=== PATIENT | male | born 1945 | race Caucasian/White ===

== ENCOUNTER → 2017-07-08 | Outpatient (CLI) | payer MEDICARE ==
[~2017-07-08] MED LIST: AMIL5 PO; AMLO5 PO; AZAT50 PO; Altoprev20 MG PO; Aspirin EC81 MG PO; CARV25 PO; CHOICEFUL VITA1 EACH PO; CINA30 PO; FAMO20 PO; FERR325 PO; Humalog100 UNIT/1; INSUASPI; Meribin5 MG PO; POTCHL20ER PO; POTPHO PO; Prednisone5 MG PO; TACR1 PO; VITAMIN D32000 UNIT PO
== END | disposition home or self-care (01) ==
LOC: OLS 12:30
PROVIDERS: Internal Medicine
DX: N18.3 Chronic kidney disease, stage 3 (moderate) (principal)
CPT/HCPCS: 82570; 84156

== ENCOUNTER → 2017-12-24 | Outpatient (CLI) | payer MEDICARE | LOC: LAB SHORT 07:40 | DX: E11.9 Type 2 diabetes mellitus without complications (principal); N25.81 Secondary hyperparathyroidism of renal origin | CPT/HCPCS: 36415; 83036; 83970 ==

== ENCOUNTER → 2018-07-22 | Outpatient (CLI) | payer MEDICARE, OTHER | END | disposition home or self-care (01) | LOC: LAB 07:00 → LAB SHORT 07:00 | PROVIDERS: Internal Medicine | DX: N18.3 Chronic kidney disease, stage 3 (moderate) (principal) | CPT/HCPCS: 81050; 84156 ==

== ENCOUNTER 2018-10-08 09:23 | Day surgery (SDC) | payer MEDICARE, OTHER ==
[~2018-10-08] VITALS: Ht 175.3 cm; Wt 90.9 kg
[~2018-10-08 09:23] MED LIST changes: +DOXA2; +FURO20; +LOSA25; +MAGOXI400; +Phospha 250 Ne250 MG; +SITA100T2; +SUCR1
--- NOTE | 2018-10-08 10:49 | NUR ---
10/08/18 1049 Dilia Pena LATE ENTRY FOR TODAY DURING DISCHARGE PATIENT REFUSED MULTIPLE OFFERS OF PO FLUIDS.
== END 2018-10-08 10:45 | disposition home or self-care (01) ==
LOC: ORSCSDS 09:23
PROVIDERS: Internal Medicine Gastroenterology
PROC: 0DB68ZX Excision of Stomach, Via Natural or Artificial Opening Endoscopic, Diagnostic (ICD-10-PCS; principal; 2018-10-08 10:45)
PROC: 0DB58ZX Excision of Esophagus, Via Natural or Artificial Opening Endoscopic, Diagnostic (ICD-10-PCS; principal; 2018-10-08 10:45)
DX: K22.70 Barrett's esophagus without dysplasia (principal); K29.80 Duodenitis without bleeding; K44.9 Diaphragmatic hernia without obstruction or gangrene; K31.9 Disease of stomach and duodenum, unspecified; R11.2 Nausea with vomiting, unspecified; K21.9 Gastro-esophageal reflux disease without esophagitis; E78.5 Hyperlipidemia, unspecified; I10 Essential (primary) hypertension; E11.9 Type 2 diabetes mellitus without complications; D64.9 Anemia, unspecified; Z79.82 Long term (current) use of aspirin; Z79.4 Long term (current) use of insulin; Z79.899 Other long term (current) drug therapy
CPT/HCPCS: 82947; 88305; 88342; J2704; J7120

== ENCOUNTER → 2019-09-01 | Outpatient (CLI) | payer MEDICARE ==
[2019-09-01 10:44] LABS: Protein, Urine Quantitative 62.1 mg/dL (0.0-11.9)
== END | disposition home or self-care (01) ==
LOC: LAB SHORT 08:16 → LAB 08:16 → LAB FUT 08-05 05:00 → EDSTATUS 08-05 05:00
PROVIDERS: Internal Medicine
DX: N18.3 Chronic kidney disease, stage 3 (moderate) (principal)
CPT/HCPCS: 81050; 84156

== ENCOUNTER → 2020-06-15 | Outpatient (CLI) | payer MEDICARE, OTHER ==
[~2020-06-15] MED LIST changes: +AMLO10 PO; -AMLO5 PO; +ATHLETE'S FOO35.4 GM TOP; -Altoprev20 MG PO; -CARV25 PO; +CARVEDILOL12.5 MG PO; +CLOTRIMAZOLE AF1524 TOP; +Carvedilol25 MG PO; -FURO20; +FURO20 PO; -LOSA25; +LOSA50 PO; +LOVA40 PO; +MAGNESIUM OXID500 MG PO; +PHOSPHO-TRIN 2250 MG PO; +PRED5 PO; +Pepcid20 MG PO; -Phospha 250 Ne250 MG; +XARELTO15 MG PO
== END | disposition home or self-care (01) ==
LOC: LAB SHORT 16:32
DX: Z48.817 Encounter for surgical aftercare following surgery on the skin and subcutaneous tissue (principal); L08.9 Local infection of the skin and subcutaneous tissue, unspecified; L81.4 Other melanin hyperpigmentation
CPT/HCPCS: 87070; 87077; 87147; 87186; 87205

== ENCOUNTER 2021-05-14 11:20 | Day surgery (SDC) | payer MEDICARE, OTHER ==
[~2021-05-14] VITALS: Ht 175.3 cm; Wt 88.1 kg
--- NOTE | 2021-05-14 12:48 | NUR ---
Ambulatory in Day Surgery Patient states colon prep results clear. History, Chart, Medications and Allergies reviewed before start of procedure. Pre-Op teaching done. Pt verbalizes understanding. Patient States Post-Procedure ride home has been arranged.
--- NOTE | 2021-05-14 13:06 | NUR ---
05/14/21 1306 Naga Gregory History, Chart, Medications and Allergies reviewed before start of procedure. Patient confirms NPO status and agrees with scheduled surgery. 3-LEAD EKG REVIEWED WITH PHYSICIAN PRIOR TO START OF PROCEDURE. MONITOR INTACT WITH CONTINUOUS PULSE OXIMETRY AND INTERMITTENT BP. PATIENT DETERMINED TO BE ASA APPROPRIATE FOR PROPOFOL SEDATION PRIOR TO START OF PROCEDURE BY DR. AVERY.
--- NOTE | 2021-05-14 14:05 | NUR ---
Patient up to Ambulate independently. Gait steady. Discharge instructions reviewed with patient. Patient verbalizes understanding. Copy given to patient to take home. Patient States Post-Procedure ride home has been arranged. Discharged via wheelchair to private car for ride home.
== END 2021-05-14 14:08 | disposition home or self-care (01) ==
LOC: ORSCMMR 11:20 → ORD 13:00 → ORSCMMR 13:00
PROVIDERS: Surgery
PROC: 0DBL8ZX Excision of Transverse Colon, Via Natural or Artificial Opening Endoscopic, Diagnostic (ICD-10-PCS; principal; 2021-05-14 13:00)
PROC: 0DBK8ZX Excision of Ascending Colon, Via Natural or Artificial Opening Endoscopic, Diagnostic (ICD-10-PCS; principal; 2021-05-14 13:00)
DX: Z12.11 Encounter for screening for malignant neoplasm of colon (principal); D12.2 Benign neoplasm of ascending colon; D12.3 Benign neoplasm of transverse colon; K64.8 Other hemorrhoids; Z86.010 Personal history of colon polyps; I25.10 Atherosclerotic heart disease of native coronary artery without angina pectoris; I48.0 Paroxysmal atrial fibrillation; I10 Essential (primary) hypertension; E21.2 Other hyperparathyroidism; N18.6 End stage renal disease; Z94.0 Kidney transplant status; E78.5 Hyperlipidemia, unspecified; Z79.82 Long term (current) use of aspirin; Z79.899 Other long term (current) drug therapy; Z79.4 Long term (current) use of insulin
CPT/HCPCS: 82947; 88305; J2704; J7030

== ENCOUNTER 2021-08-16 16:52 | Emergency (ER) | payer MEDICARE, OTHER ==
[~2021-08-16] VITALS: Ht 177.8 cm; Wt 83.9 kg
[2021-08-16 17:47] LABS: BASOPHILS ABSOLUTE AUTO 0.01 K/mm3 (0.00-0.23); BASOPHILS PERCENT AUTO 0 % (0-2); EOSINOPHILS ABSOLUTE AUTO 0.04 K/mm3 (0.00-0.68); EOSINOPHILS PERCENT AUTO 1 % (0-6); Hematocrit 30.6 % (37.0-53.0); IMMATURE GRAN ABSOLUTE AUTO 0.02 K/mm3 (0.00-0.10); IMMATURE GRAN PERCENT AUTO 0 % (0-1); LYMPHOCYTES ABSOLUTE AUTO 0.39 K/mm3 (0.84-5.20); LYMPHOCYTES PERCENT AUTO 8 % (21-46); MONOCYTES ABSOLUTE AUTO 0.55 K/mm3 (0.16-1.47); MONOCYTES PERCENT AUTO 11 % (4-13); Mean Corpuscular HGB 33.7 pg (26.0-34.0); Mean Corpuscular HGB Conc 32.7 g/dL (31.5-36.5); Mean Corpuscular Volume 103 fL (80-100); NEUTROPHILS ABSOLUTE AUTO 3.86 K/mm3 (1.96-9.15); NEUTROPHILS PERCENT AUTO 79 % (41-73); Platelet Count 140 K/mm3 (150-400); RDW Coefficient Variation 15.7 % (11.7-14.2); RDW Standard Deviation 57.9 fL (35.1-46.3); Red Blood Cell Count 2.97 M/mm3 (4.30-5.90); White Blood Cell Count 4.87 K/mm3 (4.00-11.30)
[2021-08-16 18:05] LABS: Albumin, Blood 3.1 g/dL (3.4-5.0); Bilirubin, Total 0.4 mg/dL (0.1-1.0); Bun/Creatinine Ratio 16.6 (12.0-20.0); Calcium, Blood 9.6 mg/dL (8.5-10.1); Creatinine, Blood 1.87 mg/dL (0.60-1.20); Globulin, Blood 3.1 g/dL (2.2-4.0); Potassium, Blood 5.9 mmol/L (3.5-5.5); Total Protein, Blood 6.2 g/dL (6.4-8.2)
[2021-08-16 22:05] LABS: Calcium, Ionized (POC) 1.33 mmol/L (1.10-1.46); Chloride (POC) 104 mmol/L (98-108); Glucose (ISTAT POC) 116 mg/dL (70-99); Hemoglobin (POC) 9.5 g/dL (13.5-17.5); Potassium (POC) 5.4 mmol/L (3.5-5.5); Sodium (POC) 137 mmol/L (135-148); Total CO2 (POC) 23 mmol/L (21-32)
== END 2021-08-16 22:52 | disposition home or self-care (01) ==
LOC: ER 16:52
PROVIDERS: Emergency Medicine; Physician Assistant
DX: R06.02 Shortness of breath (principal); E87.5 Hyperkalemia; N18.6 End stage renal disease; I12.0 Hypertensive chronic kidney disease with stage 5 chronic kidney disease or end stage renal disease; E11.22 Type 2 diabetes mellitus with diabetic chronic kidney disease; Z88.8 Allergy status to other drugs, medicaments and biological substances; Z88.5 Allergy status to narcotic agent; Z79.899 Other long term (current) drug therapy; Z79.52 Long term (current) use of systemic steroids; K21.9 Gastro-esophageal reflux disease without esophagitis; Z87.891 Personal history of nicotine dependence
CPT/HCPCS: 36415; 71046; 80047; 80053; 83880; 84484; 85014; 85025; 93005; 93010; 96374; 99285-25; J1815

== ENCOUNTER 2021-08-26 12:08 | Inpatient (IN) | payer MEDICARE, OTHER ==
[~2021-08-26] VITALS: Ht 177.8 cm; Wt 80.7 kg
[2021-08-26 12:34] LABS: BASOPHILS ABSOLUTE AUTO 0.02 K/mm3 (0.00-0.23); BASOPHILS PERCENT AUTO 0 % (0-2); EOSINOPHILS ABSOLUTE AUTO 0.03 K/mm3 (0.00-0.68); EOSINOPHILS PERCENT AUTO 0 % (0-6); Hematocrit 34.7 % (37.0-53.0); IMMATURE GRAN ABSOLUTE AUTO 0.05 K/mm3 (0.00-0.10); IMMATURE GRAN PERCENT AUTO 1 % (0-1); LYMPHOCYTES ABSOLUTE AUTO 0.31 K/mm3 (0.84-5.20); LYMPHOCYTES PERCENT AUTO 4 % (21-46); MONOCYTES ABSOLUTE AUTO 0.73 K/mm3 (0.16-1.47); MONOCYTES PERCENT AUTO 9 % (4-13); Mean Corpuscular HGB 33.4 pg (26.0-34.0); Mean Corpuscular HGB Conc 31.7 g/dL (31.5-36.5); Mean Corpuscular Volume 106 fL (80-100); Mean Platelet Volume 9.2 fL (9.1-12.4); NEUTROPHILS ABSOLUTE AUTO 6.82 K/mm3 (1.96-9.15); NEUTROPHILS PERCENT AUTO 86 % (41-73); Platelet Count 142 K/mm3 (150-400); RDW Coefficient Variation 15.7 % (11.7-14.2); RDW Standard Deviation 60.8 fL (35.1-46.3); Red Blood Cell Count 3.29 M/mm3 (4.30-5.90); White Blood Cell Count 7.96 K/mm3 (4.00-11.30)
[2021-08-26 13:02] LABS: Albumin, Blood 3.1 g/dL (3.4-5.0); Albumin/Globulin Ratio 0.8 (0.8-1.8); Bilirubin, Total 0.7 mg/dL (0.1-1.0); Bun/Creatinine Ratio 10.9 (12.0-20.0); Calcium, Blood 10.4 mg/dL (8.5-10.1); Creatinine, Blood 4.66 mg/dL (0.60-1.20); Globulin, Blood 4.1 g/dL (2.2-4.0); Potassium, Blood 9.6 mmol/L (3.5-5.5); Total Protein, Blood 7.2 g/dL (6.4-8.2)
[2021-08-26 13:10] LABS: Calcium, Ionized (POC) 1.36 mmol/L (1.10-1.46); Chloride (POC) 110 mmol/L (98-108); Creatinine (POC) 5.1 mg/dL (0.8-1.3); Glucose (ISTAT POC) 206 mg/dL (70-99); Hemoglobin (POC) 11.2 g/dL (13.5-17.5); Potassium (POC) >9.0 mmol/L (3.5-5.5); Sodium (POC) 131 mmol/L (135-148); Total CO2 (POC) 19 mmol/L (21-32)
[2021-08-26 13:44] LABS: Magnesium, Blood 2.8 mg/dL (1.6-2.4); Phosphorus, Blood 5.4 mg/dL (2.5-4.9)
[2021-08-26 13:54] LABS: International Normalized Ratio 1.31; Prothrombin Time Results 13.5 Sec (9.7-11.5)
--- NOTE | 2021-08-26 15:39 | NUR ---
ASSUMED CARE OF PATIENT 1420 ED ADMIT FROM ELECTRICAL MANUFACTURING TECHNICIAN: AOX4, FOLLOWS COMMANDS, CONSENTS TO DIALYSIS, R FEMORAL TRANSVENOUS PACER PRESENT 10MAH OUTPUT, 60 V PACED RATE AND 2 SENSING, SYRINGE UNLOCKED UPON TRANSFER WITH 1.5ML IN SYRINGE, MD WALTON CONSULTED BALOON DEFLATED AND LOCKED NOW, DIALYSIS INITITED, LEVO ORDER FOR HYPOTENSION DURING DIALYSIS, MAP GOAL 60 PER MD BURDEN, GENERALIZED BRUISING BL UPPER EXTREMETIES, +2 PULSES, V PACED 60, LUNGS SEVERLY DIM, AIRVO PLACED TO MAINTAIN SATS >92, COMPLAINS OF SOB, TACHYPNEA 30S SHALLOW, ABDOMEN NON-TENDER, LBM THIS AM, WILL CONTINUE TO MONITOR PATIENT/LABS/VSS FOR IPROVEMENT IN CONDITION.
--- NOTE | 2021-08-26 18:31 | NUR ---
AOX4, DENIES PAIN, ONE EPISODE N/V, 4MG ZOFRAN GIVEN, PUPILS 3MM BRISK, V PACED CONVERTED TO NSR 60S DURING DIALYSIS, LEVO HIGH 9 DURING DIALYSIS TITRATING OFF CURRENTLY, +2 PULSES, DIM LUNGS ALL [place], AIRVO 40/40, BLANDON COUDE 16F PLACED, MINIMAL OUTPUT CURRENTLY, RENAL US AND ECHO COMPLETED RESULTS PENDING, POSSIBLE ASPIRATION W/ N/V CHEST X RAY DONE, AM X RAY ORDER PLACED, IN ROOM MOST OF SHIFT, LABS ORDER FOR 1899 COHEN REQUEST CALL WHEN RESULTED, WILL CONTINUE TO MONITOR AND REPORT TO NIGHT RN.
--- NOTE | 2021-08-26 19:15 | NUR ---
ASSUMPTION OF CARE PT LYING IN BED IN REVERSE [place] POSITION. HE IS RECEIVING NS 75ML/HR. LEVOPHED IS ON STANDBY. TRANSVENOUS PACER IN PLACE WITH RATE OF 50, OUTPUT 10, AND SENSITIVITY 2. HE IS CURRENTLY SINUS RHYTHM ON THE MONITOR WITH RATE IN 70S. R FEMORAL VEIN INSERTION SITE, TEGADERM CHG IN C/D/I. HE IS ON AIRVO AT 40L WITH FIO2 40% AND SPO2 >95%. ALERT AND ORIENTED. BLANDON PATENT AND DRAINING SMALL AMOUNT OF MACKENZIE URINE. DIALYSIS DONE TODAY. FISTULA ON L ARM, BRUIT PRESENT. SEE SHIFT ASSESSMENT.
[2021-08-26 19:19] LABS: Hematocrit 37.1 % (37.0-53.0)
[2021-08-26 19:50] LABS: Albumin, Blood 3.2 g/dL (3.4-5.0); Anion Gap 7 mmol/L (6-16); Blood Urea Nitrogen 32 mg/dL (8-24); Bun/Creatinine Ratio 9.2 (12.0-20.0); CO2, Blood 24 mmol/L (21-32); Calcium, Blood 11.4 mg/dL (8.5-10.1); Chloride, Blood 101 mmol/L (98-108); Creatinine, Blood 3.49 mg/dL (0.60-1.20); Glomerular Filtration Rate 17 (60-); Glucose, Blood 163 mg/dL (70-99); Phosphorus, Blood 5.4 mg/dL (2.5-4.9); Potassium, Blood 8.3 mmol/L (3.5-5.5); Sodium, Blood 132 mmol/L (136-145)
[2021-08-26 20:20] LABS: PCO2 Arterial 38.6 mmHg (35-45); PO2 Arterial 77.8 mmHg (80-100); pH Blood Arterial 7.43 (7.35-7.45)
--- NOTE | 2021-08-26 20:27 | NUR ---
UPDATE LAB RESULTS CALLED TO DR COHEN. ORDER RECEIVED FOR ABG AND REPEAT VENOUS POTASSIUM DRAW. WILL CALL WITH RESULTS. PT C/O PAIN AND DISCOMFORT. DR DIAMOND CALLED AND ORDER RECEIVED FOR TRAMADOL.
--- NOTE | 2021-08-26 20:30 | NUR ---
POTASSIUM UPDATE DR COHEN CALLED WITH REPEAT LAB RESULTS. ORDERS RECEIVED FOR BICARB, D50, INSULIN, AND LOKELMA. PLAN TO REPEAT POTASSIUM DRAW AT 2300.
[2021-08-27 02:58] LABS: Hematocrit 32.8 % (37.0-53.0); Hemoglobin 10.5 g/dL (13.5-17.5)
[2021-08-27 03:16] LABS: Magnesium, Blood 2.5 mg/dL (1.6-2.4)
[2021-08-27 03:19] LABS: Albumin, Blood 2.8 g/dL (3.4-5.0); Anion Gap 6 mmol/L (6-16); Blood Urea Nitrogen 43 mg/dL (8-24); Bun/Creatinine Ratio 10.6 (12.0-20.0); CO2, Blood 28 mmol/L (21-32); Calcium, Blood 9.9 mg/dL (8.5-10.1); Chloride, Blood 102 mmol/L (98-108); Creatinine, Blood 4.04 mg/dL (0.60-1.20); Glomerular Filtration Rate 14 (60-); Glucose, Blood 103 mg/dL (70-99); Phosphorus, Blood 4.8 mg/dL (2.5-4.9); Sodium, Blood 136 mmol/L (136-145)
--- NOTE | 2021-08-27 05:45 | NUR ---
SHIFT SUMMARY PT REMAINS ALERT AND ORIENTED. HE IS RECEIVING NS 50ML/HR. LEVOPHED HAS BEEN ON OFF SINCE PREVIOUS SHIFT. TRANSVENOUS PACER SETTINGS ARE UNCHANGED, RATE OF 50, OUTPUT 10, AND SENSITIVITY 2. INSERTION SITE WNL, DRESSING C/D/I. HE HAS REMAINED IN SINUS RHYTHM WITH A RATE OF 70S-80S THROUGHOUT SHIFT. BP STABLE. HE IS ON AIRVO AT 20L WITH FIO2 30% AND SPO2 >92%. BLANDON IS PATENT DRAINING TO GRAVITY ALTHOUGH PT IS EXPERIENCING OLIGURIA. DR COHEN ROUNDED THIS AM, PLAN FOR DIALYSIS THIS AM.
--- NOTE | 2021-08-27 06:50 | NUR ---
UPDATE DR WALTON AT BEDSIDE FOR EVAL. AT THIS TIME HE SHUT TEMPORARY PACEMAKER OFF. HE INSTRUCTED IF NEEDED TO TURN DEVICE BACK ON AND IT CAN BE LEFT AT THE DEFAULT RATES. DR WALTON WILL RETURN IN 2 HRS TO CHECK PT AND POSSIBLY PLAN TO REMOVE PACEMAKER TODAY. VSS AT THIS TIME.
--- NOTE | 2021-08-27 08:45 | NUR ---
ASSUMED CARE OF PATIENT 0700: AOX4, FOLLOWS COMMANDS, DENIES P/N/V, VSS ON AIRVO 04/27, DIALYSIS THIS AM SCHEDULED, TOLERATED PO AND DIET, PASSED SAFETY SWALLOWMD WALTON REMOVED PACER WIRE AND SHEATH REMOVED BY THIS RN AT 0840, HELD PRESSURE FOR 5 MINUTES NO BLEEDING, TAGEDERM/TAPE PLACED CDI, WILL CONTINUE TO MONITOR PATIENT THROUGH SHIFT.
[2021-08-27 14:24] LABS: Hematocrit 31.6 % (37.0-53.0); Hemoglobin 10.2 g/dL (13.5-17.5)
[2021-08-27 14:47] LABS: Albumin, Blood 2.5 g/dL (3.4-5.0); Anion Gap 8 mmol/L (6-16); Blood Urea Nitrogen 15 mg/dL (8-24); Bun/Creatinine Ratio 6.4 (12.0-20.0); CO2, Blood 29 mmol/L (21-32); Calcium, Blood 9.4 mg/dL (8.5-10.1); Chloride, Blood 105 mmol/L (98-108); Creatinine, Blood 2.35 mg/dL (0.60-1.20); Glomerular Filtration Rate 27 (60-); Glucose, Blood 137 mg/dL (70-99); Sodium, Blood 142 mmol/L (136-145)
[2021-08-27 15:07] LABS: Potassium, Blood 4.9 mmol/L (3.5-5.5)
--- NOTE | 2021-08-27 18:15 | NUR ---
DISCREPANCY BETWEEN SCREEN MAKER MED LIST AND PATIENT MED LIST TACROLIMUS DOSAGE. CONFIRMED WITH [facility] THAT PATIENT RECEIVES 0.5MG BID, MD COHEN NOTIFIED AND INSTRUCTED THIS RN TO PLACE THIS ORDER SO PATIENT RECEIVES FIRST DOSE TONIGHT. ORDER IS PLACED.
--- NOTE | 2021-08-27 18:18 | NUR ---
AOX4, DENIES P/N/V, CALLS WHEN NEEDED, IN ROOM MOST OF DAY, NSR 80-90S, BP WNL TO SOFT, CARVEDILOL RESTARTED, +2/+1 PULSES RESPECTIVELY, DIALYSIS TODAY 500ML OFF, RECHECK POTASSIUM POST DIALYSIS 4.9 NO NEED TO REASSES PER MD COHEN, LUNGS DIM MORE SO ON RLL BASE MD AWARE, AIRVO CONTINUES TITRATED UP SOME TO 30L/30%, DENIES SOB THIS SHIFT, BOWELS NON TENDER BUT AUDIBLE, BLANDON MINIMAL OUTPUT MD CRUZ/VICKI AWARE, TOLERATING DIET BUT MINIMAL APPETITE BASELINE PER PATIENT AND , TACROLIMUS ORDER RESTARTED SEE NOTE, WILL CONTINUE TO MONITOR AND REPORT TO NIGHT RN.
[2021-08-27 21:07] LABS: HBSAG SCREEN Negative (Negative); HEP A AB, IGM Negative (Negative); HEP B CORE AB, IGM Negative (Negative); HEP C VIRUS AB <0.1 (0.0-0.9)
--- NOTE | 2021-08-27 21:17 | NUR ---
ASSUMED CARE AT 1900 PATIENT IS ALERT AND ORIENTED X4. COOPERATIVE WITH CARE. MOVES ALL EXTREMETIES. 02 SATS 94% ON AIRVO 30L FI02 30%, TITRATING DOWN. LS CLEAR TO DIMINISHED. HR SR @80s. BP STABLE. BLANDON DRAINING TO GRAVITY. RIGHT FEMORAL SITE S/P REMOVAL OF TRANSVENOUS PACEMAKER WNL, DRESSING C/D/I. VERBAL CUES TO REPOSITION AND ASSISTANCE WITH BOOSTING IN BED. SEE SHIFT ASSESSMENT FOR MORE DETAIL.
--- NOTE | 2021-08-28 06:21 | NUR ---
SHIFT SUMMARY PATIENT IS ALERT AND ORIENTED X4. FOLLOWS COMMANDS, COOPERATIVE WITH CARE. 02 SATS 94% ON AIRVO AT 30L FI02 30%. LS CLEAR TO DIM. HR SR @80s, BP STABLE. BLANDON DRAINING TO GRAVITY. PATIENT SLEPT MOST THE NIGHT. VERBAL QUES TO REPOSITION. CALL LIGHT IN REACH.
[2021-08-28 06:33] LABS: Hematocrit 27.6 % (37.0-53.0); Hemoglobin 8.8 g/dL (13.5-17.5)
[2021-08-28 06:50] LABS: Albumin, Blood 2.3 g/dL (3.4-5.0); Anion Gap 5 mmol/L (6-16); Blood Urea Nitrogen 22 mg/dL (8-24); Bun/Creatinine Ratio 6.2 (12.0-20.0); CO2, Blood 28 mmol/L (21-32); Calcium, Blood 9.4 mg/dL (8.5-10.1); Chloride, Blood 105 mmol/L (98-108); Creatinine, Blood 3.55 mg/dL (0.60-1.20); Glomerular Filtration Rate 17 (60-); Glucose, Blood 94 mg/dL (70-99); Magnesium, Blood 2.2 mg/dL (1.6-2.4); Potassium, Blood 4.9 mmol/L (3.5-5.5); Sodium, Blood 138 mmol/L (136-145)
--- NOTE | 2021-08-28 11:37 | NUR ---
REASSESSMENT PT ALERT AND RESTING ON BED, VISITING WITH FAMILY. PT WAS DOWNGRADED TO PCU STATUS THIS MORNING. PT REMAINS ON HIGHFLOW NC. RT ADJUSTED FLOW RATE THIS MORNING PT NOW ON 40L/30%FIO2, SPO2 MAINTING AROUND 96%. NEXT DIALYSIS PLANNED FOR TOMORROW. OTHER PORTIONS OF PREVIOUS ASSESSMENT REMAINS UNCHANGED. SINUS RHYTHM ON THE MONITOR. VITALS STABLE.
--- NOTE | 2021-08-28 12:47 | NUR ---
Initial Interview with [facility] Person 1. Who did you speak with? Spoke with Cherelle (at bedside) 2. What is the patient's prior level of functions? Patient lives independently with his . He is able to perform ADL's without assistance. Patient has a pretty active lifestyle. He likes to restore old vehicles. They live in a single story dwelling ranch style home with one step at the entrance and back of the home. They have one cat. Patient had a kidney transplant in 2013 and has been active. 3. Is the patient and/or family able to provide transportation to and from doctor's appointments and order picker prescriptions? 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 4. Does patient still drive? Yes 5. POA/PCP/NOK: Spouse Cherelle [phone] PCP REINFORCED CONCRETE INSPECTOR Zina Maier 6. Discharge goals: TBD -Home Health: no preference if needed -[facility] Facility: N/A -DME: TBD/none -Medication Management: managed medications -Preferred Pharmacy: [facility] -Housekeeping/Cooking: patient and take care of housekeeping and cooking as needed 7. List barriers to discharge: None known at this time 8. Discharge Plan: TBD/Home 9. Other Notes: Patient is not a . Explained importance of hospital follow-up with PCP within 7 days of discharge. PCP Follow up appointment: Will be scheduled within seven calendar days of discharge. Numbers confirmed: Patient [phone] Cherelle [phone].
--- NOTE | 2021-08-28 15:50 | NUR ---
CARE HANDOFF GIVEN TO DUSTIN CHU.
--- NOTE | 2021-08-28 16:58 | NUR ---
ASSUMED CARE AT 1600 PATIENT HAS BEEN SITTING IN BED WITH AT BEDSIDE. HE HAS BEEN WATCHING TV. VS STABLE. PATIENT DOES HAVE HIS HEARING AIDES IN PLACE. HE HAS A LOW GRADE TEMP AT 99.1C. BLOOD SUGAR IS 92 NO COVERAGE NEEDED. HIS URINE OUTPUT IS GOOD VIA THE BLANDON. WILL GIVE DINNER SOON. NO NEW ACUTE NEEDS AT THIS TIME.
--- NOTE | 2021-08-28 21:02 | NUR ---
ASSUMED CARE AT 1900 PATIENT IS ALERT AND ORIENTED X4. COOPERATIVE WITH CARE. 02 SATS 94% ON AIRVO 40L FI02 40%. RR 18-24. WEAK COUGH. LS CLEAR TO DIM. HR SR 80s. BP STABLE. BLANDON DRAINING TO GRAVITY. RIGHT UPPER ARM IV LEAKING, REMOVED. PATIENT ABLE TO REPOSITION SELF IN BED, VERBAL REMINDERS. ORAL CARE DONE, PATIENT ABLE TO BRUSH OWN TEETH. SEE SHIFT ASSESSMENT FOR MORE DETAIL.
--- NOTE | 2021-08-28 22:22 | NUR ---
REPORT GIVEN TO GEOLOGY INSTRUCTORDUSTIN DIMAS. PATIENT TO PCU AT APPROX 1330.
--- NOTE | 2021-08-28 23:04 | NUR ---
PATIENT TRANSFERED FROM ICU AT 2210 ACCOMPANIED BY ICU NURSE AND RT. PATEINT MR. ALVES IS 76 YRS OLD MALE, ORIENTATED TIMES 4. COOPERATIVE AND ABLE TO PLACED NEEDS KNOWN. PATIENT IS DEAF WITH HEARING AIDS BOTH ON JUNIOR MECHANICAL ENGINEER AT BEDSIDE. LUNGS SOUNDS RT UPPER LOBES CLEAR AND LL ARE DIMINISHED. PULSE ARE STRONG IN ALL AREAS, PEDIS PULSE ARE FAINTED. PATIENT STATED LAST BM 08/26. SKIN WARM TO TOUCH. CALL LIGHT WITHIN REACH. BED IN SAFE POSITION.
[2021-08-29 04:49] LABS: Hematocrit 26.3 % (37.0-53.0); Hemoglobin 8.5 g/dL (13.5-17.5)
[2021-08-29 05:35] LABS: Albumin, Blood 2.2 g/dL (3.4-5.0); Anion Gap 10 mmol/L (6-16); Blood Urea Nitrogen 28 mg/dL (8-24); CO2, Blood 24 mmol/L (21-32); Calcium, Blood 9.5 mg/dL (8.5-10.1); Chloride, Blood 103 mmol/L (98-108); Creatinine, Blood 3.98 mg/dL (0.60-1.20); Glomerular Filtration Rate 15 (60-); Glucose, Blood 77 mg/dL (70-99); Magnesium, Blood 2.2 mg/dL (1.6-2.4); Phosphorus, Blood 4.3 mg/dL (2.5-4.9); Potassium, Blood 4.4 mmol/L (3.5-5.5); Sodium, Blood 137 mmol/L (136-145)
--- NOTE | 2021-08-29 10:33 | NUR ---
UPDATE PT LEFT FOR DIALYSIS AT 0945. RT PUT PT ON 8L NC AND REPORTED THAT PT SATS ARE HOLDING IN THE 90'S. PT WAS TRANSFERED TO DIALYSIS VIA HOSPITAL BED AND OCCOMPANIED BY 2 AUTOMATIC TOE LASTER AND RT.
--- NOTE | 2021-08-29 12:46 | NUR ---
PT FINISHED DIALYSIS AND RETURNED TO PCU AT 1220.
--- NOTE | 2021-08-29 16:12 | NUR ---
Pt. is awake and sitting up in bed. Pt. welcomes my visit. Pt. is pleasant and we quickly establish rapport. Facilitated a short life review. Pt. displayed evidence of engagement. Prayed with Pt. and committed to see him again (tomorrow) Thursday. Pt. verbalized gratitude for the spiritual care visit.
--- NOTE | 2021-08-29 17:47 | NUR ---
TRANSFER UPDATE/ SHIFT SUMMARY REPORT GIVEN TO ANDREINA CHAN AT 1738. PT LEFT UNIT AT 1746 VIA HOSPITAL BED AND ON 3L NC SATTING >97%. PT BELONGINGS IN BAGS AND WITH PT FOR TRANSFER. PT CHART WITH PT FOR TRANSFER. PT RECIEVING NS FLUIDS PER EMAR DURING TRANSFER. SHIFT SUMMARY PT A/O X4 AND COOPERATIVE OF CARE. VSS THROUGHOUT SHIFT WITH 0S SATS >94%. PT WAS ON AIRVO 30L/30% AT BEGINNING OF SHIFT, TITRATED TO 8L HFNC WHEN TRANSFERED TO DIALYSIS, TITRATED TO 5L HFNC AT 1450, AND TITRATED TO 3L HFNC AT 1700, SATS >97%. PT WENT TO DIALYSIS, 1000ML REMOVED. NO REPORT OF CHEST PAIN/PRESSURE THROUGHOUT SHIFT. NO REPORT OF SOB/DYSPNEA THROUGHOUT SHIFT. JAMIA ARGUELLES'Hair, PT USES URINAL AND BEDPAN. PT EXPRESSED WANTING TO BE ABLE TO "GET UP AND USE THE TOILET", THIS RN EXPLAINED THAT THE PT MAY BE WEAK SINCE HE HAS BEEN BED REST SINCE 08/26 AND PT/OT MAY NEED TO ASSESS HIM, INFO FORWARDED TO SURGICAL NURSE.
--- NOTE | 2021-08-29 17:55 | NUR ---
TO ROOM 212 ACCOMPANIED BY .
--- NOTE | 2021-08-30 02:55 | NUR ---
SHIFT SUMMARY VISHNU CONTINUES TO SAT ABOVE 92% ON 3LPM VIA NASAL CANULA. HE IS IMPULSIVE AT NIGHT, BED ALARM ON FOR SAFETY. VOIDING AT LEAST 300 ML THIS SHIFT, AMBULATING TO BATHROOM WITH SBA AND GAITBELT WITH 1 STAFF MEMBER FOR HELP MANAGING CORDS/TUBING. PT IS IMPULSIVE AND NEEDS REMINDERS TO WAIT FOR STAFF ASSISTANCE. RIGHT ARM IV'S FLUSH WELL. LEFT ARM FISUTLA HAS POSITIVE BRUIT AND THRILL. DENIES CHEST PAIN, HEADACHE OR DIZZINESS. WILL CONTINUE TO MONITOR AND GIVE REPORT TO DAY SHIFT RN.
[2021-08-30 04:19] LABS: Hematocrit 25.9 % (37.0-53.0); Hemoglobin 8.7 g/dL (13.5-17.5)
[2021-08-30 04:42] LABS: Albumin, Blood 2.1 g/dL (3.4-5.0); Anion Gap 6 mmol/L (6-16); Blood Urea Nitrogen 19 mg/dL (8-24); Bun/Creatinine Ratio 6.8 (12.0-20.0); CO2, Blood 29 mmol/L (21-32); Calcium, Blood 9.1 mg/dL (8.5-10.1); Chloride, Blood 104 mmol/L (98-108); Creatinine, Blood 2.81 mg/dL (0.60-1.20); Glomerular Filtration Rate 22 (60-); Glucose, Blood 120 mg/dL (70-99); Magnesium, Blood 2.1 mg/dL (1.6-2.4); Phosphorus, Blood 2.9 mg/dL (2.5-4.9); Potassium, Blood 3.6 mmol/L (3.5-5.5); Sodium, Blood 139 mmol/L (136-145)
--- NOTE | 2021-08-30 11:45 | NUR ---
Pt. is awake and in bed. Pt. welcomes my visit. Re-established rapport. Pt. verbalized a personal commendation for the work I do as a geriatric physician. Spouse arrived and continued facilitating a life review. Pt. displays evidence of emotion over the importance of purpose in life. Prayed with Pt. and Spouse. Both verbalized gratitude for the care the pt. has received, [facility]
--- NOTE | 2021-08-30 12:19 | NUR ---
GAUZE AND TEGADERM DRESSINGS AT R GROIN AND R SHOULDER REMOVED AND SKIN CLEANSED. SITES APPEAR WNL, NO SIGN OF BLEED.
--- NOTE | 2021-08-30 12:42 | NUR ---
REDNESS AND WARMTH NOTED TO R AC AND FOREARM NEAR SALINE LOCKED IV SITE. SLIGHT SWELLING PRESENT, NO EDEMA. RADIAL PULSE +2, NO FIRMNESS NOTED TO SKIN, PT DENIES ANY PAIN. DR. ABARCA MADE AWARE OF THIS AND ASSESSED. IV THEN DC'D, ARM ELEVATED AND WARM BLANKET WRAPPED AROUND ARM. WILL CTM
--- NOTE | 2021-08-30 16:02 | NUR ---
24 HR URINE COLLECTION STARTED AT 1545 ON 08/30
--- NOTE | 2021-08-30 16:56 | NUR ---
SUMMARY: NO ACUTE CHANGE TODAY. VSS, A/O, [place]. BED ALARM ON FOR SAFETY, PT USING CALL LIGHT. PT HAS DENIED CP, SOB. NO DIALYSIS TODAY, PT VOIDING SMALL AMOUNTS. 24 HOUR URINE COLLECTION IN PROCESS, WILL BE COMPLETE ON 08/31 AT 1545. NO COMPLAINTS OF PAIN. ABLE TO WEAN OFF 02 TODAY. SP02 92% ON RA, DEEP BREATHING ENCOURAGED. NO SAFETY CONCERNS, WILL CTM AND REPORT TO NOC RN.
[2021-08-31 04:21] LABS: Hematocrit 25.2 % (37.0-53.0); Hemoglobin 8.4 g/dL (13.5-17.5)
[2021-08-31 04:39] LABS: Albumin, Blood 2.1 g/dL (3.4-5.0); Anion Gap 7 mmol/L (6-16); Blood Urea Nitrogen 20 mg/dL (8-24); Bun/Creatinine Ratio 7.5 (12.0-20.0); CO2, Blood 27 mmol/L (21-32); Calcium, Blood 9.3 mg/dL (8.5-10.1); Chloride, Blood 103 mmol/L (98-108); Creatinine, Blood 2.65 mg/dL (0.60-1.20); Glomerular Filtration Rate 24 (60-); Glucose, Blood 100 mg/dL (70-99); Magnesium, Blood 2.2 mg/dL (1.6-2.4); Phosphorus, Blood 2.7 mg/dL (2.5-4.9); Potassium, Blood 3.5 mmol/L (3.5-5.5); Sodium, Blood 137 mmol/L (136-145)
--- NOTE | 2021-08-31 05:01 | NUR ---
CONTINUING WITH 24 HOUR URINE COLLECTION, ON ICE. PT USING CALL LIGHT APPROPRIATELY, AND WAITING FOR STAFF ASSISTANCE TO USE BATHROOM. WHILE SLEEPING, VISHNU BEGAN DESATING TO 87-88%, SO PLACED NASAL CANULA AT 1LPM. PT IS SATING AT 97% WITH 1LPM OF OXYGEN WHILE SLEEPING. ASSISTANCE IN ROOM FOR MANAGING TUBES/CORDS. FISTULA IN LEFT ARM, WITH + BRUIT AND THRILL. NO DIALYSIS TODAY. BED ALARM ON FOR SAFETY. WILL CONTINUE TO MONITOR.
--- NOTE | 2021-08-31 11:47 | NUR ---
DR. ABARCA ROUNDED ON PT. PLAN FOR DISCHARGE HOME TODAY. PLAN FOR PT TO SEE PHYSICAL THERAPY AND COMPLETE 24 HOUR URINE PRIOR TO DISCHARGE. WILL MONITOR UNTIL DISCHARGE.
[2021-08-31] MEDS ORDERED: ASPIR 8181 M1 PO (12:26)
[2021-08-31] MEDS ORDERED: MERIBIN5 MG PO (12:27)
[2021-08-31] MEDS ORDERED: Vitamin D1000 UNI1 PO (12:29)
[2021-08-31] MEDS ORDERED: DOXA2 PO (12:30)
[2021-08-31] MEDS ORDERED: Calcium Carbon500 MG PO (12:31)
[2021-08-31] MEDS ORDERED: FERSU300 PO (12:34)
[2021-08-31] MEDS ORDERED: FURO20 PO (12:35)
[2021-08-31] MEDS ORDERED: NOVOLOG MI100 UNIT/2 SC (12:40)
[2021-08-31] MEDS ORDERED: MULTI-VITAMIN1 EAC2 PO (12:43)
[2021-08-31] MEDS ORDERED: K-Phos Origina500 MG PO (12:55)
--- NOTE | 2021-08-31 12:56 | NUR ---
HOME MEDICATION REVIEW REVIEWED HOME MEDICATION LIST WITH ON PHONE, LIST VERIFIED + TO BRING IN COPY OF LIST TO HAVE ON CHART.
[2021-08-31 16:38] LABS: Protein, Urine Quantitative 51.8 mg/dL (0.0-11.9)
--- NOTE | 2021-08-31 18:31 | NUR ---
SHIFT SUMMARY PT REMAINS IN THE HOSPITAL TO MONITOR AFTER HOME MEDICATIONS ARE RESTARTED. PT WAS EVALUATED BY PT TODAY, HE DID WELL AND CONTINUES TO BE A SBA WITH TRANSFERS. PT WAS ENCOUARAGED TO SIT UP TO THE CHIAR TODAY, HE TOLERATED WELL. VSS. WILL MONITOR UNTIL REPORT TO FEDERICO RN.
[2021-09-01 04:26] LABS: Hematocrit 26.4 % (37.0-53.0); Hemoglobin 8.8 g/dL (13.5-17.5)
[2021-09-01 04:49] LABS: Albumin, Blood 2.2 g/dL (3.4-5.0); Anion Gap 7 mmol/L (6-16); Blood Urea Nitrogen 21 mg/dL (8-24); Bun/Creatinine Ratio 8.1 (12.0-20.0); CO2, Blood 27 mmol/L (21-32); Calcium, Blood 9.6 mg/dL (8.5-10.1); Chloride, Blood 104 mmol/L (98-108); Creatinine, Blood 2.58 mg/dL (0.60-1.20); Glomerular Filtration Rate 24 (60-); Glucose, Blood 111 mg/dL (70-99); Magnesium, Blood 2.2 mg/dL (1.6-2.4); Phosphorus, Blood 2.7 mg/dL (2.5-4.9); Potassium, Blood 3.4 mmol/L (3.5-5.5); Sodium, Blood 138 mmol/L (136-145)
--- NOTE | 2021-09-01 04:50 | NUR ---
SHIFT SUMMARY NO ACUTE CHANGES TO REPORT THIS SHIFT, PT HAS RESTED MOST OF THE NIGHT. DENIES PAIN OR NEEDS. BED ALARM IN PLACE T/O SHIFT. PT IMPULSIVE AND DOES NOT CALL FOR ASSISTANCE WHEN NEEDING TO USE THE BATHROOM. A/OX4, BUT FORGETFUL. PT STARTED BACK ON HIS HOME MEDICATIONS YESTERDAY IN ANTICIPATION FOR DISCHARGE TODAY. BED IN LOWEST POSTION, CALL LIGHT WITHIN REACH.
--- NOTE | 2021-09-01 09:39 | NUR ---
REFUSING POTASSIUM PATIENT REFUSED POTASSIUM SUPP THIS AM. INFORMED OF CURRENT POTASSIUM LAB VALUE AND OF RECOMMENDATION TO TAKE POTASSIUM SUPPLEMENT. STILL DECLINES AND STATES HE WILL CONSULT WITH HIS BUSINESS INTELLIGENCE ADMINISTRATOR ON 09/02/21.
--- NOTE | 2021-09-01 15:07 | NUR ---
DISCHARGE SUMMARY PATIENT ALERT, ORIENTED, AND KETCHIKAN. TOLERATING RENAL DIET AND LIQUIDS. SALINE LOCKED. DENIES PAIN. SAT UP IN RECLINER DURING DAY. LABS STABLE PER HOSP. DISCHARGED HOME TO FOLLOW UP WITH NEPHROLOGY AND PCP THIS WEEK. DISCHARGE EDUCATION GIVEN ON MEDS, LABS, AND FOLLOW UP APPTS. PATIENT LEFT UNIT AT 1500 VIA WHEELCHAIR FOR HOME WITH SPOUSE.
--- NOTE | 2021-09-02 08:47 | NUR ---
Per Dr. Moore discharge appropriate. Patient did not oppose discharge. Patient discharged home to residence. Date of discharge: 09/01/2021 Date of admission: 08/26/2021 Transportation provided by: Family/ Cherelle Location/Residence: [address] [place] [address] DME Ordered: None ordered Follow-ups needed: [facility] will contact patient to schedule hospital follow-up visit. Reinforced importance of hospital follow-up with PCP. Provider/PCP: Dr. Zina Maier When: WITHIN 1 WEEK Specialty: The patient is advised to follow up with his transplant team at [facility] and his Nephrology as an outpatient. Dr. Romeo was involved in the patient's care and he would need to follow up with a hander in for repeat renal functions and electrolyte check. Confirmed numbers: Patient: [phone] Cherelle [phone] Comment: Patient to contact PCP if any questions regarding medication management, social service needs, and if condition worsens go to Urgent Care/ER. No barriers to discharge. Patient has a strong support network.
[2021-09-03 06:11] LABS: ANTIGLOMERULAR BM AB 2 units (0-20)
[2021-09-03 13:11] LABS: ANA DIRECT Negative (Negative); ANTIMYELOPEROXIDASE (MPO) ABS <9.0 U/mL (0.0-9.0); ANTIPROTEINASE 3 (PR-3) ABS <3.5 U/mL (0.0-3.5); ATYPICAL PANCA <1:20 titer (Neg:<1:20); CYTOPLASMIC (C-ANCA) <1:20 titer (Neg:<1:20); PERINUCLEAR (P-ANCA) <1:20 titer (Neg:<1:20)
[2021-09-04 11:11] LABS: M-SPIKE, % Not Observed % (Not Observed); PROTEIN,TOTAL,URINE 24.8 mg/dL (Not Estab.)
[2021-09-04 15:11] LABS: A/G RATIO 0.9 (0.7-1.7); ALBUMIN 2.1 g/dL (2.9-4.4); ALPHA-1-GLOBULIN 0.4 g/dL (0.0-0.4); ALPHA-2-GLOBULIN 0.8 g/dL (0.4-1.0); BETA GLOBULIN 0.7 g/dL (0.7-1.3); GAMMA GLOBULIN 0.7 g/dL (0.4-1.8); GLOBULIN, TOTAL 2.5 g/dL (2.2-3.9); IMMUNOGLOBULIN A, QN, SERUM 169 mg/dL (61-437); IMMUNOGLOBULIN G, QN, SERUM 529 mg/dL (603-1613); IMMUNOGLOBULIN M, QN, SERUM 39 mg/dL (15-143); M-SPIKE Not Observed g/dL (Not Observed); PROTEIN, TOTAL, SERUM 4.6 g/dL (6.0-8.5)
== END 2021-09-01 15:26 | disposition home or self-care (01) | DRG 260 ==
LOC: ER 12:08 → SURS 13:34 → ICUE 13:34 → ICUW 13:34 → ICUE 13:35 → PCU 08-28 22:12 → SURS 08-29 18:00
PROVIDERS: Emergency Medicine; Internal Medicine Nephrology; ADMIT Family Medicine
PROC: 02HK3JZ Insertion of Pacemaker Lead into Right Ventricle, Percutaneous Approach (ICD-10-PCS; 2021-08-26)
PROC: 5A1213Z Performance of Cardiac Pacing, Intermittent (ICD-10-PCS; 2021-08-26)
PROC: 5A0935A Assistance with Respiratory Ventilation, Less than 24 Consecutive Hours, High Flow/Velocity Cannula (ICD-10-PCS; 2021-08-27)
PROC: 5A1D70Z Performance of Urinary Filtration, Intermittent, Less than 6 Hours Per Day (ICD-10-PCS; principal; 2021-08-28)
DX: R00.1 Bradycardia, unspecified (principal); N18.6 End stage renal disease; T86.12 Kidney transplant failure; N17.9 Acute kidney failure, unspecified; I25.810 Atherosclerosis of coronary artery bypass graft(s) without angina pectoris; Z94.0 Kidney transplant status; E87.2 Acidosis; E87.1 Hypo-osmolality and hyponatremia; E87.5 Hyperkalemia; E11.22 Type 2 diabetes mellitus with diabetic chronic kidney disease; D64.9 Anemia, unspecified; I12.9 Hypertensive chronic kidney disease with stage 1 through stage 4 chronic kidney disease, or unspecified chronic kidney disease; Z79.4 Long term (current) use of insulin; E86.9 Volume depletion, unspecified; I95.9 Hypotension, unspecified; T37.8X5A Adverse effect of other specified systemic anti-infectives and antiparasitics, initial encounter; B37.9 Candidiasis, unspecified; K21.9 Gastro-esophageal reflux disease without esophagitis; Z91.09 Other allergy status, other than to drugs and biological substances; Z88.8 Allergy status to other drugs, medicaments and biological substances; E83.41 Hypermagnesemia; E87.6 Hypokalemia
CPT/HCPCS: 33210; 36415; 36600; 51703; 71045; 76776; 80047; 80053; 80069; 80074; 80197; 81050; 82330; 82435; 82784; 82803; 82947; 83516; 83520; 83605; 83735; 84100; 84132; 84153; 84156; 84165; 84166; 84295; 84484; 85014; 85018; 85025; 85610; 85730; 86037; 86038; 86317; 86334; 86335; 93005; 93010; 93308; 93321; 93990; 94644; 94667; 94762; 96374; 96375; 97161; 97530; 99285-25; A9270; C1760; C1894; J0461; J0610; J0881; J1644; J1650; J1815; J2250; J2405; J3010; J7030; J7040; J7060; J7500; J7507; J7512

== ENCOUNTER → 2021-12-21 | Outpatient (CLI) | payer MEDICARE, OTHER ==
[~2021-12-21] MED LIST changes: +ASPIR 8181 M1 PO; +Calcium Carbon500 MG PO; +DOXA2 PO; +FERSU300 PO; +K-Phos Origina500 MG PO; +MERIBIN5 MG PO; +MULTI-VITAMIN1 EAC2 PO; +NOVOLOG MI100 UNIT/2 SC; +Vitamin D1000 UNI1 PO
[2021-12-21 13:38] LABS: BASOPHILS PERCENT AUTO 0 % (0-2); EOSINOPHILS PERCENT AUTO 3 % (0-6); Hematocrit 31.6 % (37.0-53.0); Hemoglobin 10.5 g/dL (13.5-17.5); IMMATURE GRAN ABSOLUTE AUTO 0.01 K/mm3 (0.00-0.10); IMMATURE GRAN PERCENT AUTO 0 % (0-1); LYMPHOCYTES ABSOLUTE AUTO 0.47 K/mm3 (0.84-5.20); LYMPHOCYTES PERCENT AUTO 14 % (21-46); MONOCYTES ABSOLUTE AUTO 0.28 K/mm3 (0.16-1.47); MONOCYTES PERCENT AUTO 8 % (4-13); Mean Corpuscular HGB 32.9 pg (26.0-34.0); Mean Corpuscular HGB Conc 33.2 g/dL (31.5-36.5); Mean Corpuscular Volume 99 fL (80-100); Mean Platelet Volume 9.6 fL (9.1-12.4); NEUTROPHILS PERCENT AUTO 74 % (41-73); Platelet Count 71 K/mm3 (150-400); RDW Coefficient Variation 15.5 % (11.7-14.2); RDW Standard Deviation 55.8 fL (35.1-46.3); Red Blood Cell Count 3.19 M/mm3 (4.30-5.90); White Blood Cell Count 3.36 K/mm3 (4.00-11.30)
[2021-12-21 13:48] LABS: Albumin/Globulin Ratio 0.9 (0.8-1.8); Bilirubin, Total 0.3 mg/dL (0.1-1.0); Bun/Creatinine Ratio 14.8 (12.0-20.0); Calcium, Blood 9.6 mg/dL (8.5-10.1); Creatinine, Blood 2.71 mg/dL (0.60-1.20); Globulin, Blood 3.5 g/dL (2.2-4.0); Potassium, Blood 5.1 mmol/L (3.5-5.5); Total Protein, Blood 6.5 g/dL (6.4-8.2)
== END | disposition home or self-care (01) ==
LOC: LAB SHORT 13:32 → LAB 13:32
PROVIDERS: Physician Assistant
DX: M54.9 Dorsalgia, unspecified (principal)
CPT/HCPCS: 80053; 84484; 85025

== ENCOUNTER → 2022-01-06 | Outpatient (CLI) | payer MEDICARE, OTHER | END | disposition home or self-care (01) | LOC: LAB 11:00 → LAB SHORT 11:00 | DX: L30.4 Erythema intertrigo (principal); C44.321 Squamous cell carcinoma of skin of nose; D48.5 Neoplasm of uncertain behavior of skin | CPT/HCPCS: 87070; 87077; 87147; 87186; 87205 ==

== ENCOUNTER 2022-05-18 10:14 | Emergency (ER) | payer MEDICARE, OTHER ==
[~2022-05-18] VITALS: Ht 177.8 cm; Wt 81.7 kg
[2022-05-18 10:47] LABS: Source, Urine Clean Catch
[2022-05-18 10:54] LABS: Appearance, Urine Clear (Clear); Bilirubin, Urine Neg (Neg); Blood, Urine 4+ (Neg); Color, Urine Yellow (P-Yellow); Glucose Qualitative, Urine Neg (Neg); Ketones, Urine Neg (Neg); Leukocyte Esterase, Urine Neg (Neg); Nitrite, Urine Neg (Neg); Protein, Urine 3+ (Neg); Specific Gravity, Urine 1.015 (1.003-1.022); Urobilinogen, Urine NORM (Normal)
[2022-05-18 11:04] LABS: Bacteria Not Seen /hpf; Squamous Epithelial Cells Not Seen /hpf (Few); White Blood Cells, Urine Not Seen /hpf (0-5); Yeast/Fungi Urine Not Seen /hpf
[2022-05-18 11:25] LABS: BASOPHILS ABSOLUTE AUTO 0.01 K/mm3 (0.00-0.23); BASOPHILS PERCENT AUTO 0 % (0-2); EOSINOPHILS ABSOLUTE AUTO 0.07 K/mm3 (0.00-0.68); EOSINOPHILS PERCENT AUTO 1 % (0-6); Hematocrit 36.4 % (37.0-53.0); Hemoglobin 11.6 g/dL (13.5-17.5); IMMATURE GRAN ABSOLUTE AUTO 0.02 K/mm3 (0.00-0.10); IMMATURE GRAN PERCENT AUTO 0 % (0-1); LYMPHOCYTES ABSOLUTE AUTO 0.51 K/mm3 (0.84-5.20); LYMPHOCYTES PERCENT AUTO 10 % (21-46); MONOCYTES ABSOLUTE AUTO 0.58 K/mm3 (0.16-1.47); MONOCYTES PERCENT AUTO 11 % (4-13); Mean Corpuscular HGB 30.8 pg (26.0-34.0); Mean Corpuscular HGB Conc 31.9 g/dL (31.5-36.5); Mean Corpuscular Volume 97 fL (80-100); Mean Platelet Volume 8.9 fL (9.1-12.4); NEUTROPHILS ABSOLUTE AUTO 4.19 K/mm3 (1.96-9.15); NEUTROPHILS PERCENT AUTO 78 % (41-73); Platelet Count 102 K/mm3 (150-400); RDW Coefficient Variation 16.7 % (11.7-14.2); RDW Standard Deviation 58.8 fL (35.1-46.3); Red Blood Cell Count 3.77 M/mm3 (4.30-5.90); White Blood Cell Count 5.38 K/mm3 (4.00-11.30)
[2022-05-18 11:48] LABS: Albumin/Globulin Ratio 0.9 (0.8-1.8); Bilirubin, Total 0.4 mg/dL (0.1-1.0); Bun/Creatinine Ratio 15.8 (12.0-20.0); Calcium, Blood 9.7 mg/dL (8.5-10.1); Creatinine, Blood 1.58 mg/dL (0.60-1.20); Globulin, Blood 3.5 g/dL (2.2-4.0); Total Protein, Blood 6.5 g/dL (6.4-8.2)
== END 2022-05-18 14:05 | disposition home or self-care (01) ==
LOC: ER 10:14
PROVIDERS: Emergency Medicine
DX: Z03.89 Encounter for observation for other suspected diseases and conditions ruled out (principal); I12.0 Hypertensive chronic kidney disease with stage 5 chronic kidney disease or end stage renal disease; E11.22 Type 2 diabetes mellitus with diabetic chronic kidney disease; N18.6 End stage renal disease; Z94.0 Kidney transplant status; Z79.01 Long term (current) use of anticoagulants; Z79.899 Other long term (current) drug therapy; Z79.4 Long term (current) use of insulin; Z88.5 Allergy status to narcotic agent; Z88.8 Allergy status to other drugs, medicaments and biological substances
CPT/HCPCS: 36415; 70450; 80053; 81001; 85025; 93005; 93010

== ENCOUNTER → 2022-11-11 | Outpatient (CLI) | payer MEDICARE, OTHER ==
[~2022-11-11] MED LIST changes: +CARV25 PO; +OMEP20ER PO
[2022-11-11 13:13] LABS: BASOPHILS ABSOLUTE AUTO 0.01 K/mm3 (0.00-0.23); BASOPHILS PERCENT AUTO 0 % (0-2); EOSINOPHILS ABSOLUTE AUTO 0.04 K/mm3 (0.00-0.68); EOSINOPHILS PERCENT AUTO 1 % (0-6); Hematocrit 24.8 % (37.0-53.0); IMMATURE GRAN ABSOLUTE AUTO 0.04 K/mm3 (0.00-0.10); IMMATURE GRAN PERCENT AUTO 1 % (0-1); LYMPHOCYTES ABSOLUTE AUTO 0.17 K/mm3 (0.84-5.20); LYMPHOCYTES PERCENT AUTO 3 % (21-46); MONOCYTES ABSOLUTE AUTO 0.28 K/mm3 (0.16-1.47); MONOCYTES PERCENT AUTO 4 % (4-13); Mean Corpuscular HGB 32.4 pg (26.0-34.0); Mean Corpuscular HGB Conc 32.3 g/dL (31.5-36.5); Mean Corpuscular Volume 100 fL (80-100); Mean Platelet Volume 9.9 fL (9.1-12.4); NEUTROPHILS ABSOLUTE AUTO 6.08 K/mm3 (1.96-9.15); NEUTROPHILS PERCENT AUTO 92 % (41-73); Platelet Count 142 K/mm3 (150-400); RDW Standard Deviation 57.8 fL (35.1-46.3); Red Blood Cell Count 2.47 M/mm3 (4.30-5.90); White Blood Cell Count 6.62 K/mm3 (4.00-11.30)
[2022-11-11 19:03] LABS: Albumin/Globulin Ratio 0.7 (0.8-1.8); Bilirubin, Total 0.3 mg/dL (0.1-1.0); Bun/Creatinine Ratio 15.9 (12.0-20.0); Calcium, Blood 9.2 mg/dL (8.5-10.1); Creatinine, Blood 1.82 mg/dL (0.60-1.20); Potassium, Blood 3.7 mmol/L (3.5-5.5)
== END ==
LOC: LAB SHORT 11:35 → LAB 11:35
PROVIDERS: Family Medicine
DX: T82.9XXA Unspecified complication of cardiac and vascular prosthetic device, implant and graft, initial encounter (principal)
CPT/HCPCS: 80053; 85025

== ENCOUNTER → 2022-11-18 | Outpatient (CLI) | payer MEDICARE, OTHER ==
[2022-11-18 10:47] LABS: Hematocrit 27.8 % (37.0-53.0); Hemoglobin 8.7 g/dL (13.5-17.5); Mean Corpuscular HGB 32.1 pg (26.0-34.0); Mean Corpuscular HGB Conc 31.3 g/dL (31.5-36.5); Mean Corpuscular Volume 103 fL (80-100); Mean Platelet Volume 9.6 fL (9.1-12.4); Platelet Count 145 K/mm3 (150-400); RDW Coefficient Variation 16.2 % (11.7-14.2); RDW Standard Deviation 60.4 fL (35.1-46.3); Red Blood Cell Count 2.71 M/mm3 (4.30-5.90); White Blood Cell Count 3.51 K/mm3 (4.00-11.30)
[2022-11-18 12:08] LABS: BASOPHILS PERCENT MAN 0 % (0-2); EOSINOPHILS PERCENT MAN 3 % (0-6); LYMPHOCYTES ABSOLUTE MAN 0.17 K/mm3 (0.84-5.20); LYMPHOCYTES PERCENT MAN 5 % (21-46); MONOCYTES ABSOLUTE MAN 0.14 K/mm3 (0.16-1.47); MONOCYTES PERCENT MAN 4 % (4-13); NEUTROPHILS ABSOLUTE MAN 3.08 K/mm3 (1.96-9.15); SEG NEUTROPHILS PERCENT MAN 88 % (41-73); TOTAL CELLS COUNTED 100
[2022-11-18 12:20] LABS: Alanine Aminotransfer (ALT/SGP <6 U/L (12-78); Albumin/Globulin Ratio 0.6 (0.8-1.8); Alk Phos 103 U/L (50-136); Anion Gap 8 mmol/L (6-16); Aspartate Aminotrans (AST/SGOT 16 U/L (12-37); Bilirubin, Total 0.2 mg/dL (0.1-1.0); Blood Urea Nitrogen 23 mg/dL (8-24); Bun/Creatinine Ratio 13.3 (12.0-20.0); CO2, Blood 27 mmol/L (21-32); Calcium, Blood 9.3 mg/dL (8.5-10.1); Chloride, Blood 105 mmol/L (98-108); Creatinine, Blood 1.73 mg/dL (0.60-1.20); Globulin, Blood 3.1 g/dL (2.2-4.0); Glomerular Filtration Rate 40 (60-); Glucose, Blood 182 mg/dL (70-99); Potassium, Blood 3.3 mmol/L (3.5-5.5); Sodium, Blood 140 mmol/L (136-145); Total Protein, Blood 5.1 g/dL (6.4-8.2)
== END ==
LOC: LAB 09:50 → LAB SHORT 09:50
PROVIDERS: Family Medicine
DX: T82.7XXA Infection and inflammatory reaction due to other cardiac and vascular devices, implants and grafts, initial encounter (principal); B95.61 Methicillin susceptible Staphylococcus aureus infection as the cause of diseases classified elsewhere
CPT/HCPCS: 80053; 85025

== ENCOUNTER 2022-11-20 02:35 | Day surgery (SDC) | payer MEDICARE, OTHER | END 2022-11-20 23:31 | disposition home or self-care (01) | LOC: WOUND 02:35 | DX: T81.89XD Other complications of procedures, not elsewhere classified, subsequent encounter (principal); Z85.828 Personal history of other malignant neoplasm of skin; Z94.0 Kidney transplant status; Z88.8 Allergy status to other drugs, medicaments and biological substances; Z88.4 Allergy status to anesthetic agent; Z88.5 Allergy status to narcotic agent; Y83.8 Other surgical procedures as the cause of abnormal reaction of the patient, or of later complication, without mention of misadventure at the time of the procedure | CPT/HCPCS: G0463 ==

== ENCOUNTER 2022-11-25 21:36 | Inpatient (IN) | payer MEDICARE, OTHER ==
[~2022-11-25] VITALS: Ht 177.8 cm; Wt 78.5 kg
[~2022-11-25 21:36] MED LIST changes: -PANT20 PO
[2022-11-25 22:40] LABS: Hematocrit 18.3 % (37.0-53.0); Mean Corpuscular HGB 33.9 pg (26.0-34.0); Mean Corpuscular HGB Conc 30.6 g/dL (31.5-36.5); Mean Corpuscular Volume 111 fL (80-100); Mean Platelet Volume 9.6 fL (9.1-12.4); NRBC ABSOLUTE 0.03 K/mm3 (0.00-0.02); NRBC Auto 0.9 /100 WBC (0.0-0.2); Platelet Count 111 K/mm3 (150-400); RDW Coefficient Variation 17.8 % (11.7-14.2); RDW Standard Deviation 68.4 fL (35.1-46.3); Red Blood Cell Count 1.65 M/mm3 (4.30-5.90); White Blood Cell Count 3.46 K/mm3 (4.00-11.30)
[2022-11-25 22:49] LABS: Hemoglobin 5.6 g/dL (13.5-17.5)
[2022-11-25 23:02] LABS: International Normalized Ratio 1.42; Prothrombin Time Results 14.6 Sec (9.7-11.5)
[2022-11-26] VITALS (15 sets, daily range): BP systolic 122–184; BP diastolic 69–98
--- NOTE | 2022-11-26 05:02 | NUR ---
SHIFT SUMMARY NOC ADMIT FROM ED WITH ANEMIA FROM POSSIBLE UPPER GI BLEED. GI CONSULT INITIATED. PT HAS RECEIVED 2 UNITS OF PRBC'S INFUSING THROUGH PICC IN SONI. PT ALSO ON CONTINOUS PROTONIX DRIP. PT ON TELE RUNNING AFIB WITH HR IN 90'S. PT HGB WAS 5.6, SO AWAITING AM LABS TO EVALUATE PRBC INFUSION. PT A/O X 4 SBA.PT IS CURRENTLY RESTING WITH BED IN LOWEST POSITION, AND CALL LIGHT WITHIN REACH.
[2022-11-26 07:46] LABS: BASOPHILS ABSOLUTE AUTO 0.01 K/mm3 (0.00-0.23); BASOPHILS PERCENT AUTO 0 % (0-2); EOSINOPHILS ABSOLUTE AUTO 0.17 K/mm3 (0.00-0.68); EOSINOPHILS PERCENT AUTO 4 % (0-6); Hematocrit 24.7 % (37.0-53.0); IMMATURE GRAN ABSOLUTE AUTO 0.04 K/mm3 (0.00-0.10); IMMATURE GRAN PERCENT AUTO 1 % (0-1); LYMPHOCYTES ABSOLUTE AUTO 0.58 K/mm3 (0.84-5.20); LYMPHOCYTES PERCENT AUTO 12 % (21-46); MONOCYTES ABSOLUTE AUTO 0.43 K/mm3 (0.16-1.47); MONOCYTES PERCENT AUTO 9 % (4-13); Mean Corpuscular HGB 32.8 pg (26.0-34.0); Mean Corpuscular HGB Conc 32.4 g/dL (31.5-36.5); Mean Platelet Volume 9.3 fL (9.1-12.4); NEUTROPHILS ABSOLUTE AUTO 3.59 K/mm3 (1.96-9.15); NEUTROPHILS PERCENT AUTO 75 % (41-73); NRBC ABSOLUTE 0.03 K/mm3 (0.00-0.02); NRBC Auto 0.6 /100 WBC (0.0-0.2); Platelet Count 138 K/mm3 (150-400); RDW Standard Deviation 71.6 fL (35.1-46.3); Red Blood Cell Count 2.44 M/mm3 (4.30-5.90); White Blood Cell Count 4.82 K/mm3 (4.00-11.30)
[2022-11-26 07:48] LABS: Mean Corpuscular Volume 101 fL (80-100)
[2022-11-26 08:11] LABS: Alanine Aminotransfer (ALT/SGP <6 U/L (12-78); Albumin/Globulin Ratio 0.7 (0.8-1.8); Alk Phos 70 U/L (50-136); Anion Gap 5 mmol/L (6-16); Aspartate Aminotrans (AST/SGOT 17 U/L (12-37); Bilirubin, Total 1.1 mg/dL (0.1-1.0); Blood Urea Nitrogen 32 mg/dL (8-24); Bun/Creatinine Ratio 20.5 (12.0-20.0); CO2, Blood 28 mmol/L (21-32); Calcium, Blood 9.1 mg/dL (8.5-10.1); Chloride, Blood 108 mmol/L (98-108); Creatinine, Blood 1.56 mg/dL (0.60-1.20); Globulin, Blood 2.8 g/dL (2.2-4.0); Glomerular Filtration Rate 45 (60-); Glucose, Blood 118 mg/dL (70-99); Potassium, Blood 4.3 mmol/L (3.5-5.5); Sodium, Blood 141 mmol/L (136-145); Total Protein, Blood 4.8 g/dL (6.4-8.2)
[2022-11-26] MEDS ORDERED: LOVA40 PO (14:17)
[2022-11-26] MEDS ORDERED: POTCHL20ER PO (14:18)
[2022-11-26] MEDS ORDERED: PRED5 PO (14:18)
[2022-11-26] MEDS ORDERED: TACR1 PO (14:21)
[2022-11-26 15:37] LABS: Hematocrit 24.4 % (37.0-53.0)
--- NOTE | 2022-11-26 16:56 | NUR ---
SHIFT SUMMARY PATIENT WITH SOME NAUSEA TODAY AFTER BREAKFAST. ZOFRAN PROVIDED RELIEF. PATIENT DENIES ANY PAIN THROUHOUT SHIFT. HYPERTENSION MANAGED PER EMAR. PATIENT TOLERATED BLOOD TRANSUFSION WHICH ENDED AROUND 0630 THIS AM. BED IN LOW POSITION, CALL LIGHT IN REACH. WILL CONTINUE TO MONITOR.
[2022-11-26 23:37] LABS: Hematocrit 24.4 % (37.0-53.0); Hemoglobin 7.8 g/dL (13.5-17.5)
[2022-11-27 05:12] VITALS: BP 166/83
--- NOTE | 2022-11-27 06:19 | NUR ---
SHIFT SUMMARY PT SITTING UP IN BED DURING BEDSIDE REPORT- PT TOOK SCHEDULED HS MEDS WITHOUT PROBLEMS, IV PROTONIX STARTED INFUSING IN PICC LINE- PT DENIES PAIN/NAUSEA- PT CALLS APPROPRIATE FOR SBA TO BATHROOM- SCDS APPLIED - PT ICE/WATER OF MIDNIGHT- BED LOW POSITION, CALL LIGHT WITHIN REACH
[2022-11-27 07:51] LABS: Hematocrit 25.1 % (37.0-53.0)
[2022-11-27 07:56] VITALS: BP 157/95
[2022-11-27 11:55] LABS: Hematocrit 24.8 % (37.0-53.0); Hemoglobin 8.1 g/dL (13.5-17.5); Mean Corpuscular HGB 33.8 pg (26.0-34.0); Mean Corpuscular HGB Conc 32.7 g/dL (31.5-36.5); Mean Corpuscular Volume 103 fL (80-100); Mean Platelet Volume 9.7 fL (9.1-12.4); Platelet Count 116 K/mm3 (150-400); RDW Coefficient Variation 21.2 % (11.7-14.2); RDW Standard Deviation 76.4 fL (35.1-46.3); White Blood Cell Count 5.34 K/mm3 (4.00-11.30)
[2022-11-27 12:20] LABS: Alanine Aminotransfer (ALT/SGP <6 U/L (12-78); Albumin/Globulin Ratio 0.7 (0.8-1.8); Alk Phos 77 U/L (50-136); Anion Gap 3 mmol/L (6-16); Aspartate Aminotrans (AST/SGOT 20 U/L (12-37); Bilirubin, Total 0.4 mg/dL (0.1-1.0); Blood Urea Nitrogen 27 mg/dL (8-24); Bun/Creatinine Ratio 16.1 (12.0-20.0); CO2, Blood 29 mmol/L (21-32); Calcium, Blood 9.5 mg/dL (8.5-10.1); Chloride, Blood 109 mmol/L (98-108); Creatinine, Blood 1.68 mg/dL (0.60-1.20); Globulin, Blood 2.8 g/dL (2.2-4.0); Glomerular Filtration Rate 41 (60-); Glucose, Blood 155 mg/dL (70-99); Potassium, Blood 4.5 mmol/L (3.5-5.5); Sodium, Blood 141 mmol/L (136-145); Total Protein, Blood 4.8 g/dL (6.4-8.2)
[2022-11-27 12:57] LABS: BAND PERCENT MAN 1 % (0-8); BASOPHILS ABSOLUTE MAN 0.05 K/mm3 (0.00-0.23); BASOPHILS PERCENT MAN 1 % (0-2); EOSINOPHILS PERCENT MAN 0 % (0-6); LYMPHOCYTES ABSOLUTE MAN 0.26 K/mm3 (0.84-5.20); LYMPHOCYTES PERCENT MAN 5 % (21-46); MONOCYTES PERCENT MAN 2 % (4-13); NEUTROPHILS ABSOLUTE MAN 4.91 K/mm3 (1.96-9.15); SEG NEUTROPHILS PERCENT MAN 91 % (41-73); TOTAL CELLS COUNTED 100
--- NOTE | 2022-11-27 15:48 | NUR ---
SHIFT SUMMARY PT AOX4, CURRENTLY NPO AWAITING AN EDG THIS AFTERNOON. HE HAS BEEN COOPERATIVE WITH CARE, A SBA TO THE BATHROOM. WOUND CARE CONSULT PLACED TO OBTAIN WOUND CARE ORDERS FOR HIS L FA. NO COMPLAINTS THIS SHIFT. WILL REPORT TO ONCOMING NURSE.
[2022-11-27 16:22] VITALS: BP 142/92
--- NOTE | 2022-11-27 16:35 | NUR ---
ASSUMED CARE OF PT- BEDSIDE REPORT COMPLETED WITH DUSTIN GONZALEZ. AFTER ASSUMING CARE NEW BAG OF PROTONIX WAS HUNG. PT CHANGED TO HOSPITAL GOWN FROM HOME CLOTHES. PT PENDING UPPER ENDOSCOPY AT 1500 THE TIME OF REPORT WAS 1600. RECIEVED A CALL FROM SEX WORKER OR ESCORT SCOPE HAS BEEN DELAYED UNTIL 8. PT TO REMAIN NPO IN THE EVENT OF A CANCELLATION.
--- NOTE | 2022-11-27 18:51 | NUR ---
DAY SURGERY STAFF IN ROOM TO TRANSPORT PT TO DAY SURGERY FOR SCOPE.
[2022-11-27 19:04] VITALS: BP 150/87
--- NOTE | 2022-11-27 19:23 | NUR ---
11/27/221922 Naga Gregory History, Chart, Medications and Allergies reviewed before start of procedure.MONITOR INTACT WITH CONTINUOUS PULSE OXIMETRY, CONTINUOUS END TITAL CO2, AND INTERMITTENT BLOOD PRESSURE.3-LEAD EKG REVIEWED WITH PHYSICIAN PRIOR TO START OF PROCEDURE.O2 VIA POM INTACT THROUGHOUT SEDATION/PROCEDURE.See Anesthesia record.
--- NOTE | 2022-11-27 19:45 | NUR ---
PT RETURNED TO ROOM BY DAY SURGERY STAFF. PT SITTING UP IN BED, AWAKE AND ALERT.
[2022-11-27 19:46] VITALS: BP 125/88
--- NOTE | 2022-11-27 19:54 | NUR ---
SHIFT SUMMARY- PT WAS TAKEN DOWN FOR HIS SCOPE AT THE TIME OF SHIFT CHANGE. PROTONIX DRIP SL, SCD'S DISCONNECTED, PT UP INDEPENDENTLY TO THE BATHROOM PRE PROCEDURE. NO S&S OF DISTRESS. BP'S BEING DONE ON RIGHT WRIST. PT HAS A PICC LINE IN THE RIGHT UPPER ARM AND AN IV IN THE RIGHT FORE ARM. PT HAS A FISTULA IN THE LEFT FORE ARM THAT "BLEW" AND WAS REPAIRED SURGICALLY IN A HOSPITAL IN [place]. PASSED ON IN REPORT TO NIGHT DUSTIN BERG. PT WAS NOT ON THE UNIT SO BEDSIDE REPORT WAS NOT PERFORMED.
[2022-11-28 05:21] LABS: BASOPHILS ABSOLUTE AUTO 0.01 K/mm3 (0.00-0.23); BASOPHILS PERCENT AUTO 0 % (0-2); EOSINOPHILS ABSOLUTE AUTO 0.15 K/mm3 (0.00-0.68); EOSINOPHILS PERCENT AUTO 3 % (0-6); Hematocrit 26.6 % (37.0-53.0); Hemoglobin 8.3 g/dL (13.5-17.5); IMMATURE GRAN ABSOLUTE AUTO 0.03 K/mm3 (0.00-0.10); IMMATURE GRAN PERCENT AUTO 1 % (0-1); LYMPHOCYTES PERCENT AUTO 11 % (21-46); MONOCYTES ABSOLUTE AUTO 0.49 K/mm3 (0.16-1.47); MONOCYTES PERCENT AUTO 11 % (4-13); Mean Corpuscular HGB 32.8 pg (26.0-34.0); Mean Corpuscular HGB Conc 31.2 g/dL (31.5-36.5); Mean Corpuscular Volume 105 fL (80-100); Mean Platelet Volume 9.3 fL (9.1-12.4); NEUTROPHILS ABSOLUTE AUTO 3.32 K/mm3 (1.96-9.15); NEUTROPHILS PERCENT AUTO 74 % (41-73); Platelet Count 112 K/mm3 (150-400); RDW Coefficient Variation 20.8 % (11.7-14.2); Red Blood Cell Count 2.53 M/mm3 (4.30-5.90)
[2022-11-28 05:45] LABS: Bun/Creatinine Ratio 15.7 (12.0-20.0); Calcium, Blood 9.4 mg/dL (8.5-10.1); Creatinine, Blood 1.72 mg/dL (0.60-1.20); Potassium, Blood 4.8 mmol/L (3.5-5.5)
--- NOTE | 2022-11-28 06:13 | NUR ---
SHIFT SUMMARY: PT IS A&OX4. VSS, NO ACUTE EVENTS OVERNIGHT. PT UNDERWENT AN ENDOSCOPY WITH PUSH ENTEROSCOPY EARLY IN THE SHIFT AND DENIES ANY DIFFICULTIES. HE IS TOLERATING PO INTAKE WELL, INDEPENDENT IN THE ROOM, AND DENIES PAIN. IV AND POWERGLIDE TO RIGHT ARM PATENT. PT USES THE CALL LIGHT APPROPRIATELY. WCTM UNTIL REPORT IS GIVEN TO DAY SHIFT RN.
[2022-11-28 06:14] VITALS: BP 154/83
[2022-11-28 07:50] VITALS: BP 149/125
[2022-11-28 09:35] VITALS: BP 148/87
[2022-11-28] MEDS ORDERED: PANT20 PO (11:34)
[2022-11-28] MEDS ORDERED: AMLO10 PO (11:34)
--- NOTE | 2022-11-28 11:48 | NUR ---
WOUND CARE MR. ALVES IS A MUTUAL PT OF WOUND CLINIC. CONTINUED WITH HYDROFERA BLUE, EXU-DRY, ROLLED GAUZE, BANDANET. EDUCATION ON BANDAGE CHANGE REINFORCED. PT VERBALIZED UNDERSTANDING. ORDERS IN [employer], PHOTOS IN HARD CHART
--- NOTE | 2022-11-28 12:41 | NUR ---
DISCHARGE NOTE MR ALVES IS A&OX4. AT BEDSIDE. PT AND VERBALISED UNDERSTANDING OF WRITTEN AND VERBAL DISCHARGE INSTRUCTIONS. SAID SHE HAS BEEN DOING IV ABX AT HOME AND HAS FURTHER DOSES. CONFIRMED WITH DR ABARCA THAT PT SHOULD DISCHARGE WITH PICC LINE IN PLACE AND CONTINUE ABX. ARIS AERIAL PHOTOGRAPH INTERPRETER DID FISTULA SITE LEFT ARM DRESSING THIS AM AND IS FOLLOWING UP FOR WOUND CARE AT WOUND CARE CLINIC. PT AMBULATED INDEPENDENTLY IN ROOM, DENIED PAIN TODAY. PIV REMOVED AND PT GETTING READY FOR W/C ESCORT TO VEHICLE.
== END 2022-11-28 12:44 | disposition home or self-care (01) | DRG 377 ==
LOC: ER 21:36 → MEDS 21:37 → ENPENDDIS 11-28 10:16 → MEDS 11-28 12:44
PROVIDERS: Internal Medicine; Student in an Organized Health Care Education/Training Program; ADMIT Internal Medicine
PROC: 30233N1 Transfusion of Nonautologous Red Blood Cells into Peripheral Vein, Percutaneous Approach (ICD-10-PCS; 2022-11-25)
PROC: 30233N1 Transfusion of Nonautologous Red Blood Cells into Peripheral Vein, Percutaneous Approach (ICD-10-PCS; principal; 2022-11-26)
PROC: 0DJ08ZZ Inspection of Upper Intestinal Tract, Via Natural or Artificial Opening Endoscopic (ICD-10-PCS; 2022-11-27)
DX: K25.4 Chronic or unspecified gastric ulcer with hemorrhage (principal); N18.6 End stage renal disease; D62 Acute posthemorrhagic anemia; I12.0 Hypertensive chronic kidney disease with stage 5 chronic kidney disease or end stage renal disease; I48.19 Other persistent atrial fibrillation; Z94.0 Kidney transplant status; K29.61 Other gastritis with bleeding; K92.1 Melena; B96.81 Helicobacter pylori [H. pylori] as the cause of diseases classified elsewhere; K22.70 Barrett's esophagus without dysplasia; E11.22 Type 2 diabetes mellitus with diabetic chronic kidney disease; K21.9 Gastro-esophageal reflux disease without esophagitis; E83.52 Hypercalcemia; M81.0 Age-related osteoporosis without current pathological fracture; E83.42 Hypomagnesemia; K44.9 Diaphragmatic hernia without obstruction or gangrene; D69.6 Thrombocytopenia, unspecified; Z85.828 Personal history of other malignant neoplasm of skin; Z79.01 Long term (current) use of anticoagulants; Z99.2 Dependence on renal dialysis; Z95.0 Presence of cardiac pacemaker; Z98.41 Cataract extraction status, right eye; Z98.42 Cataract extraction status, left eye; Z87.891 Personal history of nicotine dependence; Z95.1 Presence of aortocoronary bypass graft; Z86.010 Personal history of colon polyps; Z79.82 Long term (current) use of aspirin; Z79.4 Long term (current) use of insulin; Z88.4 Allergy status to anesthetic agent; Z79.899 Other long term (current) drug therapy
CPT/HCPCS: 36415; 36430; 80048; 80053; 82272; 82947; 85014; 85018; 85025; 85027; 85610; 85730; 86850; 86900; 86901; 86923; 93005; 93010; 96365; 96375; 96376; 99285-25; A9270; C9113; G0378; J0690; J2405; J2704; J7030; J7507; J7512; P9016

== ENCOUNTER → 2022-11-25 | Outpatient (CLI) | payer MEDICARE, OTHER ==
[~2022-11-25] MED LIST changes: +PANT20 PO
[2022-11-25 17:26] LABS: BASOPHILS ABSOLUTE AUTO 0.01 K/mm3 (0.00-0.23); BASOPHILS PERCENT AUTO 0 % (0-2); EOSINOPHILS ABSOLUTE AUTO 0.08 K/mm3 (0.00-0.68); EOSINOPHILS PERCENT AUTO 2 % (0-6); IMMATURE GRAN ABSOLUTE AUTO 0.02 K/mm3 (0.00-0.10); IMMATURE GRAN PERCENT AUTO 1 % (0-1); LYMPHOCYTES PERCENT AUTO 9 % (21-46); MONOCYTES ABSOLUTE AUTO 0.25 K/mm3 (0.16-1.47); MONOCYTES PERCENT AUTO 8 % (4-13); Mean Corpuscular HGB 33.5 pg (26.0-34.0); Mean Corpuscular HGB Conc 30.3 g/dL (31.5-36.5); Mean Corpuscular Volume 111 fL (80-100); NEUTROPHILS ABSOLUTE AUTO 2.68 K/mm3 (1.96-9.15); NEUTROPHILS PERCENT AUTO 80 % (41-73); NRBC ABSOLUTE 0.02 K/mm3 (0.00-0.02); NRBC Auto 0.6 /100 WBC (0.0-0.2); Platelet Count 111 K/mm3 (150-400); RDW Coefficient Variation 17.9 % (11.7-14.2); RDW Standard Deviation 69.5 fL (35.1-46.3); Red Blood Cell Count 1.61 M/mm3 (4.30-5.90); White Blood Cell Count 3.34 K/mm3 (4.00-11.30)
[2022-11-25 17:54] LABS: Alanine Aminotransfer (ALT/SGP 10 U/L (12-78); Albumin/Globulin Ratio 0.9 (0.8-1.8); Alk Phos 66 U/L (50-136); Anion Gap 5 mmol/L (6-16); Aspartate Aminotrans (AST/SGOT 15 U/L (12-37); Bilirubin, Total <0.1 mg/dL (0.1-1.0); Blood Urea Nitrogen 41 mg/dL (8-24); CO2, Blood 30 mmol/L (21-32); Calcium, Blood 9.6 mg/dL (8.5-10.1); Chloride, Blood 105 mmol/L (98-108); Creatinine, Blood 1.64 mg/dL (0.60-1.20); Globulin, Blood 2.3 g/dL (2.2-4.0); Glomerular Filtration Rate 43 (60-); Glucose, Blood 207 mg/dL (70-99); Potassium, Blood 4.9 mmol/L (3.5-5.5); Sodium, Blood 140 mmol/L (136-145); Total Protein, Blood 4.3 g/dL (6.4-8.2)
[2022-11-25 17:58] LABS: Hematocrit 17.8 % (37.0-53.0); Hemoglobin 5.4 g/dL (13.5-17.5)
== END | disposition home or self-care (01) ==
LOC: LAB 16:50 → LAB SHORT 16:50
PROVIDERS: Family Medicine
DX: T82.7XXA Infection and inflammatory reaction due to other cardiac and vascular devices, implants and grafts, initial encounter (principal); B95.61 Methicillin susceptible Staphylococcus aureus infection as the cause of diseases classified elsewhere
CPT/HCPCS: 80053; 85025

== ENCOUNTER → 2022-12-01 | Outpatient (CLI) | payer MEDICARE, OTHER ==
[~2022-12-01] MED LIST changes: +PANT20 PO
[2022-12-01 12:18] LABS: BASOPHILS ABSOLUTE AUTO 0.01 K/mm3 (0.00-0.23); BASOPHILS PERCENT AUTO 0 % (0-2); EOSINOPHILS ABSOLUTE AUTO 0.04 K/mm3 (0.00-0.68); EOSINOPHILS PERCENT AUTO 1 % (0-6); Hematocrit 26.6 % (37.0-53.0); Hemoglobin 8.6 g/dL (13.5-17.5); IMMATURE GRAN ABSOLUTE AUTO 0.02 K/mm3 (0.00-0.10); IMMATURE GRAN PERCENT AUTO 1 % (0-1); LYMPHOCYTES ABSOLUTE AUTO 0.17 K/mm3 (0.84-5.20); LYMPHOCYTES PERCENT AUTO 4 % (21-46); MONOCYTES ABSOLUTE AUTO 0.42 K/mm3 (0.16-1.47); MONOCYTES PERCENT AUTO 10 % (4-13); Mean Corpuscular HGB 33.3 pg (26.0-34.0); Mean Corpuscular HGB Conc 32.3 g/dL (31.5-36.5); Mean Corpuscular Volume 103 fL (80-100); Mean Platelet Volume 9.9 fL (9.1-12.4); NEUTROPHILS ABSOLUTE AUTO 3.74 K/mm3 (1.96-9.15); NEUTROPHILS PERCENT AUTO 85 % (41-73); Platelet Count 142 K/mm3 (150-400); RDW Coefficient Variation 19.6 % (11.7-14.2); Red Blood Cell Count 2.58 M/mm3 (4.30-5.90)
[2022-12-01 12:44] LABS: Alanine Aminotransfer (ALT/SGP <6 U/L (12-78); Albumin, Blood 2.3 g/dL (3.4-5.0); Albumin/Globulin Ratio 0.7 (0.8-1.8); Alk Phos 77 U/L (50-136); Anion Gap 5 mmol/L (6-16); Aspartate Aminotrans (AST/SGOT 13 U/L (12-37); Bilirubin, Total 0.7 mg/dL (0.1-1.0); Blood Urea Nitrogen 22 mg/dL (8-24); Bun/Creatinine Ratio 16.1 (12.0-20.0); CO2, Blood 27 mmol/L (21-32); Calcium, Blood 9.3 mg/dL (8.5-10.1); Chloride, Blood 107 mmol/L (98-108); Creatinine, Blood 1.37 mg/dL (0.60-1.20); Globulin, Blood 3.2 g/dL (2.2-4.0); Glomerular Filtration Rate 53 (60-); Glucose, Blood 160 mg/dL (70-99); Potassium, Blood 3.4 mmol/L (3.5-5.5); Sodium, Blood 139 mmol/L (136-145); Total Protein, Blood 5.5 g/dL (6.4-8.2)
== END ==
LOC: LAB SHORT 11:44 → LAB 11:44
PROVIDERS: Family Medicine
DX: T82.7XXA Infection and inflammatory reaction due to other cardiac and vascular devices, implants and grafts, initial encounter (principal); B95.61 Methicillin susceptible Staphylococcus aureus infection as the cause of diseases classified elsewhere
CPT/HCPCS: 80053; 85025

== ENCOUNTER 2022-12-03 03:09 | Day surgery (SDC) | payer MEDICARE, OTHER | END 2022-12-03 22:46 | disposition home or self-care (01) | LOC: WOUND 03:09 | DX: S51.802D Unspecified open wound of left forearm, subsequent encounter (principal); X58.XXXD Exposure to other specified factors, subsequent encounter; T82.9XXD Unspecified complication of cardiac and vascular prosthetic device, implant and graft, subsequent encounter | CPT/HCPCS: G0463 ==

== ENCOUNTER 2023-05-28 12:17 | Day surgery (SDC) | payer MEDICARE, OTHER ==
[~2023-05-28] VITALS: Ht 177.8 cm; Wt 81.1 kg
[2023-05-28] MEDS ORDERED: AZAT50 (13:10)
[2023-05-28] MEDS ORDERED: POTCHL20ER (13:12)
[2023-05-28] MEDS ORDERED: SPIR25 (13:13)
--- NOTE | 2023-05-28 13:23 | NUR ---
05/28/23 1323 Jelena Ryan TETRACAINE PLACED IN RIGHT EYE AT 1300. PLEDGET PLACED IN RIGHT EYE AT 1301. PATIENT TOLERATED WELL.
[2023-05-28 13:59] VITALS: BP 131/69
--- NOTE | 2023-05-28 14:10 | NUR ---
05/28/23 1410 Gerardo Bermeo IV REMOVED INTACT. SITE WNL.
== END 2023-05-28 14:12 | disposition home or self-care (01) ==
LOC: ORSCSDS 12:17
PROVIDERS: Ophthalmology
PROC: 08RJ3JZ Replacement of Right Lens with Synthetic Substitute, Percutaneous Approach (ICD-10-PCS; principal; 2023-05-28 14:00)
DX: E11.36 Type 2 diabetes mellitus with diabetic cataract (principal); H25.11 Age-related nuclear cataract, right eye; Z96.1 Presence of intraocular lens; E78.5 Hyperlipidemia, unspecified; I25.10 Atherosclerotic heart disease of native coronary artery without angina pectoris; I48.91 Unspecified atrial fibrillation; E11.22 Type 2 diabetes mellitus with diabetic chronic kidney disease; I12.0 Hypertensive chronic kidney disease with stage 5 chronic kidney disease or end stage renal disease; N18.6 End stage renal disease; Z94.0 Kidney transplant status; Z79.01 Long term (current) use of anticoagulants; Z79.899 Other long term (current) drug therapy
CPT/HCPCS: 82947; J2250; J3010; J3301; J7040; V2632

== ENCOUNTER → 2024-07-06 | Outpatient (CLI) | payer MEDICARE, OTHER ==
[~2024-07-06] MED LIST changes: +AZAT50; +POTCHL20ER; +SPIR25
== END ==
LOC: LAB 07:12 → LAB SHORT 07:12
DX: D48.5 Neoplasm of uncertain behavior of skin (principal)
CPT/HCPCS: 88341; 88342

== ENCOUNTER → 2024-09-04 | Outpatient (CLI) | payer MEDICARE, OTHER ==
[2024-09-05 14:34] LABS: Stool Occult Blood Guaiac 1 Neg (Neg)
[2024-09-05 15:20] LABS: Adenovirus F 40/41 Not Detected (NOT DETECT); Astrovirus Not Detected (NOT DETECT); Campylobacter Sp Not Detected (NOT DETECT); Cryptosporidium Not Detected (NOT DETECT); Cyclospora Cayetanensis Not Detected (NOT DETECT); E. Coli O157 Not Detected (NOT DETECT); Entamoeba Histolytica Not Detected (NOT DETECT); Enteroaggregative E. coli-EAEC Not Detected (NOT DETECT); Enteropathogenic E. coli-EPEC Not Detected (NOT DETECT); Enterotoxigenic E. coli-ETEC Not Detected (NOT DETECT); Giardia Lamblia Not Detected (NOT DETECT); Norovirus GI/GII Not Detected (NOT DETECT); Plesiomonas Shigelloides Not Detected (NOT DETECT); Rotavirus A Not Detected (NOT DETECT); Salmonella Sp Not Detected (NOT DETECT); Sapovirus Not Detected (NOT DETECT); Shiga Toxin-prod E. coli-STEC Not Detected (NOT DETECT); Shigella/Enteroin E. coli-EIEC Not Detected (NOT DETECT); Vibrio Cholerae Not Detected (NOT DETECT); Vibrio Sp Not Detected (NOT DETECT); Yersinia Enterocolitica Not Detected (NOT DETECT)
[2024-09-08 18:36] LABS: CALPROTECTIN,FECAL 43 ug/g (<=49)
[2024-09-11 20:28] LABS: OVA AND PARASITE,FECAL INTERP Negative (Negative)
== END ==
LOC: LAB SHORT 09:30 → LAB 09:30
PROVIDERS: Family Medicine
DX: A09 Infectious gastroenteritis and colitis, unspecified (principal)
CPT/HCPCS: 82272; 83993; 87177; 87209; 87507

== ENCOUNTER 2025-05-09 11:01 | Inpatient (IN) | payer MEDICARE, OTHER ==
[~2025-05-09] VITALS: Ht 170.2 cm; Wt 71.0 kg
[~2025-05-09 11:01] MED LIST changes: -SPIR25; +SPIR25 PO
[2025-05-09 11:26] LABS: BASOPHILS ABSOLUTE AUTO 0.02 K/mm3 (0.00-0.23); BASOPHILS PERCENT AUTO 0 % (0-2); EOSINOPHILS ABSOLUTE AUTO 0.12 K/mm3 (0.00-0.68); EOSINOPHILS PERCENT AUTO 2 % (0-6); Hematocrit 25.5 % (37.0-53.0); Hemoglobin 7.8 g/dL (13.5-17.5); IMMATURE GRAN ABSOLUTE AUTO 0.04 K/mm3 (0.00-0.10); IMMATURE GRAN PERCENT AUTO 1 % (0-1); LYMPHOCYTES ABSOLUTE AUTO 0.29 K/mm3 (0.84-5.20); LYMPHOCYTES PERCENT AUTO 5 % (21-46); MONOCYTES ABSOLUTE AUTO 1.10 K/mm3 (0.16-1.47); MONOCYTES PERCENT AUTO 18 % (4-13); Mean Corpuscular HGB Conc 30.6 g/dL (31.5-36.5); Mean Corpuscular Volume 84 fL (80-100); NEUTROPHILS ABSOLUTE AUTO 4.57 K/mm3 (1.96-9.15); NEUTROPHILS PERCENT AUTO 74 % (41-73); NRBC ABSOLUTE 0.00 K/mm3 (0.00-0.02); NRBC Auto 0.0 /100 WBC (0.0-0.2); Platelet Count 130 K/mm3 (150-400); RDW Coefficient Variation 14.3 % (11.7-14.2); RDW Standard Deviation 44.5 fL (35.1-46.3)
[2025-05-09 11:42] LABS: Alanine Aminotransfer (ALT/SGP 21.0 U/L (12-78); Albumin, Blood 2.6 g/dL (3.4-5.0); Albumin/Globulin Ratio 0.7 (0.8-1.8); Anion Gap 10.0 mmol/L (3-11); Aspartate Aminotrans (AST/SGOT 19.0 U/L (12-37); Bilirubin, Total 0.2 mg/dL (0.1-1.0); Blood Urea Nitrogen 41.0 mg/dL (8-24); CO2, Blood 20.0 mmol/L (21-32); Calcium, Blood 9.6 mg/dL (8.5-10.1); Chloride, Blood 111.0 mmol/L (98-108); Creatinine, Blood 3.3 mg/dL (0.60-1.20); Globulin, Blood 3.8 g/dL (2.2-4.0); Glucose, Blood 254.0 mg/dL (70-99); Potassium, Blood 5.2 mmol/L (3.5-5.5); Sodium, Blood 136.0 mmol/L (136-145); Total Protein, Blood 6.4 g/dL (6.4-8.2)
[2025-05-09 12:22] LABS: Influenza A, PCR NEGATIVE (NEGATIVE); Influenza B, PCR NEGATIVE (NEGATIVE); Resp Syncytial Virus, PCR NEGATIVE (NEGATIVE); SARS-Cov-2 (COVID-19) PCR, MMC NEGATIVE (NEGATIVE)
[2025-05-09] MEDS ORDERED: NS 1,000 ML IV SCH ×2 (13:40→20:00)
[2025-05-09] MEDS ORDERED: FLU VACC TS2025(65UP)/MF59C/PF 45 MCG/0.5 ML SYRINGE IM SCH (13:40)
[2025-05-09 16:28] VITALS: BP 143/66
[2025-05-09] MEDS ORDERED: Insulin Regular 100 UNIT/ML 10ML Vial SC SCH (16:30)
[2025-05-09 16:48] LABS: Ferritin, Serum 80.0 ng/mL (26-388); Thyroid Stimulating Hormone 0.718 uIU/mL (0.360-4.800); Total Iron Binding Capacity 190.0 ug/dL (250-450)
--- NOTE | 2025-05-09 18:36 | NUR ---
END OF SHIFT PATIENT RESTING IN BED. RA, O2 >90%, PATIENT STANDBY ASSIST AND IS ABLE TO MAKE NEEDS KNOWN. PATIENT A&O4, CONSULT CALLED, NEEDS STOOL SAMPLE. NO OTHER CONCERNS FOR THIS SHIFT
[2025-05-09 19:52] VITALS: BP 149/64
[2025-05-09] MEDS ORDERED: Heparin Sodium,Porcine 5,000 UNIT/0.5 ML SDV SC SCH (21:00)
[2025-05-10 00:21] VITALS: BP 138/66
--- NOTE | 2025-05-10 04:15 | NUR ---
SHIFT SUMMARY PATIENT IS ALERT AND ORIENTED. PATIENT HAS HAD NO ACUTE EVENTS THIS SHIFT. VITAL SIGNS REVIEWED. PATIENT HAS HAD NO COMPLAINTS OF SOB, NAUSEA, VOMITTING OR PAIN THIS SHIFT. PATIENT HAS BEEN ON RA >90%. PATIENT HAS BEEN A STANDBY ASSIST TO BATHROOM. NO EVENTS ON TELE. BED IN LOCKED AND LOWEST POSITION. CALL LIGHT IN PLACE.
[2025-05-10 04:47] LABS: BASOPHILS ABSOLUTE AUTO 0.02 K/mm3 (0.00-0.23); BASOPHILS PERCENT AUTO 0 % (0-2); EOSINOPHILS ABSOLUTE AUTO 0.12 K/mm3 (0.00-0.68); EOSINOPHILS PERCENT AUTO 3 % (0-6); Hematocrit 26.5 % (37.0-53.0); Hemoglobin 8.2 g/dL (13.5-17.5); IMMATURE GRAN ABSOLUTE AUTO 0.03 K/mm3 (0.00-0.10); IMMATURE GRAN PERCENT AUTO 1 % (0-1); LYMPHOCYTES ABSOLUTE AUTO 0.28 K/mm3 (0.84-5.20); LYMPHOCYTES PERCENT AUTO 6 % (21-46); MONOCYTES ABSOLUTE AUTO 0.85 K/mm3 (0.16-1.47); MONOCYTES PERCENT AUTO 18 % (4-13); Mean Corpuscular HGB Conc 30.9 g/dL (31.5-36.5); Mean Corpuscular Volume 84 fL (80-100); NEUTROPHILS ABSOLUTE AUTO 3.37 K/mm3 (1.96-9.15); NEUTROPHILS PERCENT AUTO 72 % (41-73); NRBC ABSOLUTE 0.00 K/mm3 (0.00-0.02); NRBC Auto 0.0 /100 WBC (0.0-0.2); Platelet Count 136 K/mm3 (150-400); RDW Coefficient Variation 14.3 % (11.7-14.2); RDW Standard Deviation 44.0 fL (35.1-46.3)
[2025-05-10 07:12] VITALS: BP 143/71
[2025-05-10] MEDS ORDERED: Epoetin Alfa-EPBX 10,000 Unit/ML 1ML Vial SC SCH (09:00)
[2025-05-10] MEDS ORDERED: Sod Ferric Gluc Complx/Sucrose 125 MG in NS 100 ML IV SCH (09:00)
[2025-05-10 11:03] VITALS: BP 139/65
[2025-05-10 11:27] LABS: Anion Gap 12.0 mmol/L (3-11); Blood Urea Nitrogen 36.0 mg/dL (8-24); CO2, Blood 18.0 mmol/L (21-32); Calcium, Blood 9.6 mg/dL (8.5-10.1); Chloride, Blood 111.0 mmol/L (98-108); Creatinine, Blood 3.0 mg/dL (0.60-1.20); Glucose, Blood 173.0 mg/dL (70-99); Potassium, Blood 5.2 mmol/L (3.5-5.5); Sodium, Blood 136.0 mmol/L (136-145)
[2025-05-10 15:36] VITALS: BP 134/65
[2025-05-10 19:46] VITALS: BP 140/72
[2025-05-10 20:30] LABS: Ketones, Urine 1+ (Neg)
[2025-05-10 23:46] VITALS: BP 131/71
[2025-05-11] MEDS ORDERED: FURO20 PO (01:01)
[2025-05-11] MEDS ORDERED: HUMALOG KW100 UNIT/1 SC (01:03)
[2025-05-11 04:12] VITALS: BP 138/75
[2025-05-11 04:51] LABS: BASOPHILS ABSOLUTE AUTO 0.01 K/mm3 (0.00-0.23); BASOPHILS PERCENT AUTO 0 % (0-2); EOSINOPHILS ABSOLUTE AUTO 0.01 K/mm3 (0.00-0.68); EOSINOPHILS PERCENT AUTO 0 % (0-6); Hematocrit 26.3 % (37.0-53.0); Hemoglobin 8.0 g/dL (13.5-17.5); IMMATURE GRAN ABSOLUTE AUTO 0.09 K/mm3 (0.00-0.10); IMMATURE GRAN PERCENT AUTO 2 % (0-1); LYMPHOCYTES ABSOLUTE AUTO 0.31 K/mm3 (0.84-5.20); LYMPHOCYTES PERCENT AUTO 7 % (21-46); MONOCYTES ABSOLUTE AUTO 0.58 K/mm3 (0.16-1.47); MONOCYTES PERCENT AUTO 13 % (4-13); Mean Corpuscular HGB Conc 30.4 g/dL (31.5-36.5); Mean Corpuscular Volume 83 fL (80-100); NEUTROPHILS ABSOLUTE AUTO 3.55 K/mm3 (1.96-9.15); NEUTROPHILS PERCENT AUTO 78 % (41-73); NRBC ABSOLUTE 0.00 K/mm3 (0.00-0.02); NRBC Auto 0.0 /100 WBC (0.0-0.2); Platelet Count 124 K/mm3 (150-400); RDW Coefficient Variation 14.2 % (11.7-14.2); RDW Standard Deviation 43.7 fL (35.1-46.3)
[2025-05-11 05:15] LABS: Anion Gap 11.0 mmol/L (3-11); Blood Urea Nitrogen 47.0 mg/dL (8-24); CO2, Blood 18.0 mmol/L (21-32); Calcium, Blood 9.4 mg/dL (8.5-10.1); Chloride, Blood 112.0 mmol/L (98-108); Creatinine, Blood 2.96 mg/dL (0.60-1.20); Glucose, Blood 165.0 mg/dL (70-99); Potassium, Blood 5.0 mmol/L (3.5-5.5); Sodium, Blood 136.0 mmol/L (136-145)
--- NOTE | 2025-05-11 05:43 | NUR ---
END OF SHIFT SUMMARY: A&Ox4. PLEASANT AND COOPERATIVE WITH CARE. CALLS APPROPRIATELY AND IS ABLE TO ADVOCATE NEEDS EFFECTIVELY. VSS. TELE STRIP IN CHART REVIEWED AND INTERPRETED NSR c FHB @ 81bpm. BREATHING EVEN AND UNLABORED c RA. CONTINENT OF BOWEL AND BLADDER; LBM 05/09/25. TOLERATING DIET. AMBULATES c SBA FOR LINE MANAGEMENT. MEDS WHOLE c FLUIDS. NO ACUTE OVERNIGHT EVENTS. SLEPT MAJORITY OF NIGHT. URINE KETONE COLLECTED. BED IN LOWEST POSITION, CALL LIGHT WITHIN REACH, ALL NEEDS MET. REPORT TO ONCOMING NURSE.
[2025-05-11 07:14] VITALS: BP 127/71
[2025-05-11] MEDS ORDERED: SIRO1 PO (10:07)
--- NOTE | 2025-05-11 11:58 | NUR ---
DISCHARGE NOTE: WENT OVER DISCHARGE WITH THE PATIENT. IV AND TELE REMOVED. PATIENT COLLECTED BELONGINGS. HE WAS WHEELED DOWN TO THE [facility] BY FACILITY COORDINATOR. NO SIGNS OR SYMPTOMS OF DISTRESS DURING DISCHARGE.
[2025-05-11 12:28] LABS: Stool Occult Blood Guaiac 1 Neg (Neg)
[2025-05-12 11:24] LABS: COMPLEMENT COMPONENT 3 216 mg/dL (90-180); COMPLEMENT COMPONENT 4 40 mg/dL (10-40)
[2025-05-12 12:40] LABS: CMV ANTIBODY IGG <0.20 U/mL (<=0.59); CMV ANTIBODY IGM <8.0 AU/mL (<=29.9)
[2025-05-13 19:01] LABS: BK QNT BY NAAT, PLAS LOG IU/ML Not Detected; BK QNT BY NAAT, PLASMA INTERP Not Detected (Not Detected); BK QNT BY NAAT, PLASMA IU/ML Not Detected
== END 2025-05-11 12:11 | disposition home or self-care (01) | DRG 699 ==
LOC: ER 11:01 → MEDS 11:02 → ENPENDDIS 05-11 09:25 → MEDS 05-11 12:11
PROVIDERS: Emergency Medicine; Hospitalist; ADMIT Family Medicine
DX: T86.19 Other complication of kidney transplant (principal); N17.9 Acute kidney failure, unspecified; N18.4 Chronic kidney disease, stage 4 (severe); E11.22 Type 2 diabetes mellitus with diabetic chronic kidney disease; I48.0 Paroxysmal atrial fibrillation; D63.1 Anemia in chronic kidney disease; K21.9 Gastro-esophageal reflux disease without esophagitis; D69.6 Thrombocytopenia, unspecified; R05.9 Cough, unspecified; I12.9 Hypertensive chronic kidney disease with stage 1 through stage 4 chronic kidney disease, or unspecified chronic kidney disease; K52.9 Noninfective gastroenteritis and colitis, unspecified; I25.2 Old myocardial infarction; Z88.8 Allergy status to other drugs, medicaments and biological substances; Z88.5 Allergy status to narcotic agent; Z79.01 Long term (current) use of anticoagulants; Z79.52 Long term (current) use of systemic steroids; Z79.621 Long term (current) use of calcineurin inhibitor; Z79.69 Long term (current) use of other immunomodulators and immunosuppressants; Z85.828 Personal history of other malignant neoplasm of skin; Z95.1 Presence of aortocoronary bypass graft
CPT/HCPCS: 36415; 71045; 76776; 80048; 80053; 81003; 82010; 82272; 82607; 82728; 82746; 82947; 83540; 83550; 83880; 84443; 85025; 86037; 86160; 86644; 86645; 87637; 87799; 93005; 93010; 93306; 96361; 96365; 96372; 99285-25; A9270; G0378; J1815; J2916; J7030; J7512; J7520; Q5106

== ENCOUNTER 2025-06-19 00:44 | Day surgery (SDC) | payer MEDICARE, OTHER ==
[~2025-06-19 00:44] MED LIST changes: +HUMALOG KW100 UNIT/1 SC; +SIRO1 PO
[2025-06-19] MEDS ORDERED: Lidocaine HCl 4% Cream 5 GM ONE (07:52)
== END 2025-06-19 23:20 | disposition home or self-care (01) ==
LOC: WOUND 00:44
DX: S81.831A Puncture wound without foreign body, right lower leg, initial encounter (principal); E11.51 Type 2 diabetes mellitus with diabetic peripheral angiopathy without gangrene; I10 Essential (primary) hypertension; I25.10 Atherosclerotic heart disease of native coronary artery without angina pectoris; Z88.8 Allergy status to other drugs, medicaments and biological substances
CPT/HCPCS: A9270; G0463